=== PATIENT | female | born 1995 | race African-American/Black ===

== ENCOUNTER 2021-12-03 19:20 | Emergency (ER) | payer OTHER ==
--- OUTSIDE RECORDS SUMMARY | 2021-12-03 19:23 | XMS REPORT | Continuity of Care Document ---
:1995 Author Organization [facility] t Address [address] [place] [address] [address] [place] [address] Care Team Providers Name Role Phone PCP, DOES NOT HAVE A Primary Care Physician Unavailable Romel JONES Attending Clinician Unavailable Lab Attending Clinician Unavailable Romel Winn Attending Clinician Payers Payer Name Policy Type Policy Number Effective Date Expiration Date S ourkelsey MEDICAID PENDING PENDING 2021 2021 00:00:00 00:00:00 MEDICAID OF [place] [id number] 2021 2021 00:00:00 00:00:00 Problems Condition Condition Condition Status Onset Resolution Last Treating Co mments Source Name Details Category Date Date Treatment Clinician Date Maternal Maternal Disease Active Overview: Un rebecca varicella, varicella, 11-23 Formattin ity of non-immune non-immune 00:00: g of this 00 note Medical might be Branch different from the original. Address in PP Supervisio Supervisio Disease Active U nivers n of high n of high 11-22 ity of risk risk 00:00: [place] , , 00 Me dical antepartum antepartum Br anch Primigravi Primigravi Disease Active U nivers da in da in 11-22 ity of first first 00:00: [place] trimester trimester 00 Medi fidencio Branch History of History of Disease Active U nivers stomach stomach 11-22 ity of ulcers ulcers 00:00: [place] 00 Medical Branch Marijuana Marijuana Disease Active Uni vers smoker smoker 11-22 ity of 00:00: Medical Branch BMI BMI Disease Active Univers 27.0-27.9, 27.0-27.9, 3-29 it y of adult adult 00:00: [place] 00 Medical Branch Anemia Anemia Disease Active Overview: Compa s 01-31 Formattin ity of 00:00: g of this [place] 00 note Medical might be Branch different from the original. 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 Allergies, Adverse Reactions, Alerts Allergy Allergy Status Severity Reaction(s) Onset Inactive Treating Comm ents Source Name Type Date Date Clinician NO KNOWN Drug Active Univers ALLERGIE Class ity of S [facility] Social History Social Habit Start Date Stop Date Quantity Comments Source ASSERTION 2021-11-01 University of 00:00:00 [place] [facility] [place] History SDOH University o f Alcohol Frequency [place] M edical Branch History SDOH University o f Alcohol Std [place] Medical Drinks Branch History [facility] o f Alcohol Binge [place] Medic al Branch Exposure to Not sure University of SARS-CoV-2 [facility] (event) Branch Tobacco use and 2021-11-22 2021-11-22 Never used Universit y of exposure 00:00:00 00:00:00 [facility] Alcohol intake 2021-11-22 2021-11-22 Ex-drinker University of 00:00:00 00:00:00 (finding) [facility] Alcohol Comment 2021-11-22 2021-11-22 stopped for Universi ty of 00:00:00 00:00:00 [facility] Sex Ass[birth year] Universit y of 00:00:00 00:00:00 [facility] Smoking Status Start Date Stop Date Source Current every day smoker 2021-11-22 00:00:00 Uni versity of [facility] Medications Ordered Filled Start Stop Current Ordering Indication Dosage Frequency Signature Comments Components Source Medication Medication Date Date Medication? Clinician (SIG) Name Name Yes [id number] 1{packe Take 1 Univers vit 3-30 t} Packet by ity of 33-iron-fol 00:00: mouth [place] ic-dha 00 daily. Medical (SELECT-OB Branch + DHA) 29 mg iron-1 mg -250 mg combo pack Immunizations Ordered Filled Immunization Date Status Comments Sourc e Immunization Name Name TDAP 2009-08-27 Completed University of 00:00:00 [facility] Procedures This patient has no known procedures. Encounters Start End Encounter Admission Attending Care Care Encounter Source Date/Time Date/Time Type Type Clinicians Facility Department ID 2021-12-20 2021-12-20 Outpatient Romel JONES [facility] [id number] Univers 13:45:00 13:45:00 EMMA rand [facility] 2021-11-24 2021-11-24 [facility], Ang-Rmchp [facility] 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
[2021-12-03 19:58] LABS: Urine Blood Negative (Negative); Urine Glucose Negative (Negative); Urine Protein Negative (Negative); Urine Specific Gravity >=1.030 (1.005-1.030)
[2021-12-03] MEDS ORDERED: NA CHLORIDE 0.9% 1,000 ML ONE (20:08)
[2021-12-03] MEDS ORDERED: PROMETHAZINE INJ 25 MG/ML AMP ONE (20:08)
[2021-12-03 20:10] LABS: Absolute Lymphocytes (CBC) 1.6 K/uL (0.7-4.9); Hematocrit 37.3 % (36.0-45.0); Lymphocytes % 10.5 % (15.3-44.8); MPV 9.4 fL (7.6-11.3); RBC Red Blood Cell Count 4.21 M/uL (3.86-4.86)
[2021-12-03 20:17] LABS: Urine Amorphous Sediment 1+ /HPF (NONE SEEN); Urine Bacteria 20-50 /HPF (<20); Urine Mucus 1+ /HPF (NONE SEEN); Urine RBC <5 /HPF (NONE SEEN)
[2021-12-03 20:27] LABS: BUN Blood Urea Nitrogen 7 mg/dL (7-18); Bicarbonate 22 mmol/L (21-32); Glucose Level 105 mg/dL (74-106); Sodium Level 134 mmol/L (136-145)
[2021-12-03 20:28] LABS: Potassium 4.1 mmol/L (3.5-5.1)
[2021-12-03] MEDS ORDERED: NA CHLORIDE 0.9% 50 ML ONE (21:29)
[2021-12-03] MEDS ORDERED: CEFTRIAXONE 1000 MG/VIAL ONE (21:29)
[2021-12-03] MEDS ORDERED: ONDANSETRON 4 MG/2 ML VIAL ONE (22:22)
[2021-12-03] MEDS ORDERED: FAMOTIDINE 20 MG/2 ML VIAL IV ONE (22:23)
--- NOTE | 2021-12-03 23:30 | EDPHYS ---
Physician Documentation [facility] Name: Monserrat Tellez Age: 26 yrs Sex: Female : 1995 Arrival Date: 12/03/2021 Time: 19:23 Bed 13 Private MD: ED Physician René Soler HPI: 12/03 19:33 This 26 yrs old Black Female presents to ER via EMS with complaints of Vomiting. pm1 19:33 The patient presents to the emergency department with vomiting, 3 times since the onset pm1 of symptoms, 3 times today. Onset: The symptoms/episode began/occurred this morning. Possible causes: . The symptoms are aggravated by nothing. The symptoms are alleviated by nothing. Associated signs and symptoms: Pertinent negatives: abdominal pain, diarrhea, dysuria, fever. Severity of symptoms: in the emergency department the symptoms have improved Pain is currently a 0 / 10. The patient has not experienced similar symptoms in the past. Patient has been seen by her OB at the [facility] clinic for this . 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 - Social history:: Smoking status: Patient/guardian denies using tobacco, Stopped _ months ago 2. ROS: 19:33 Constitutional: Negative for fever, chills, and weight loss, Cardiovascular: Negative pm1 for chest pain, palpitations, and edema, Respiratory: Negative for shortness of breath, cough, wheezing, and pleuritic chest pain. 19:33 Back: Negative for injury and pain, MS/Extremity: Negative for injury and deformity, Skin: Negative for injury, rash, and discoloration, Neuro: Negative for headache, weakness, numbness, tingling, and seizure. 19:33 Abdomen/GI: Positive for vomiting, constipation, Negative for abdominal pain, diarrhea. 19:33 All other systems are negative. Exam: 19:33 Constitutional: This is a well developed, well nourished patient who is awake, alert, pm1 and in no acute distress. Head/Face: Normocephalic, atraumatic. 19:33 Skin: Warm, dry with normal turgor. Normal color with no rashes, no lesions, and no evidence of cellulitis. MS/ Extremity: Pulses equal, no cyanosis. Neurovascular intact. Full, normal range of motion. 19:33 Cardiovascular: Exam negative for acute changes, Rate: normal, Rhythm: regular, Pulses: no pulse deficits are appreciated, Heart sounds: normal, normal S1and S2. 19:33 Respiratory: Exam negative for acute changes, respiratory distress, shortness of breath, Breath sounds: are clear throughout. 19:33 Abdomen/GI: Exam negative for acute changes, Inspection: abdomen appears normal, Palpation: abdomen is soft and non-tender, in all quadrants. 19:33 Back: Exam negative for acute changes, pain, is absent. 19:33 Neuro: Exam negative for acute changes, Orientation: is normal, Mentation: is normal, Motor: is normal, moves all fours. Vital Signs: 19:24 BP 101 / 74; Pulse 82; Resp 16 S; Temp 98.6(O); Pulse Ox 96% on R/A; Weight 61.23 kg bb (R); Height 5 ft. 0 in. (152.40 cm) (R); Pain 0/10; 20:15 BP 149 / 97 LA (auto/reg); Pulse 94 MON; Resp 20 S; Pulse Ox 100% on R/A; Pain 0/10; ag7 22:35 BP 118 / 75; Pulse 64; Resp 16 S; Pulse Ox 99% on R/A; bb 19:24 Body Mass Index 26.37 (61.23 kg, 152.40 cm) bb MDM: 19:25 Patient medically screened. pm1 21:19 Data reviewed: vital signs. Data interpreted: Pulse oximetry: on room air is 100 %. pm1 Interpretation: normal. 21:37 Counseling: I had a detailed discussion with the patient and/or guardian regarding: the pm1 historical points, exam findings, and any diagnostic results supporting the discharge/admit diagnosis, lab results, the need for outpatient follow up, an OB/Gyne specialist, to return to the emergency department if symptoms worsen or persist or if there are any questions or concerns that arise at home. 22:07 ED course: Patient reports no improvement with Phenergan. Will try zofran. pm1 12/03 19:33 Order name: CBC with Diff; Complete Time: 21:18 pm1 12/03 19:33 Order name: BMP; Complete Time: 21:18 pm1 12/03 19:34 Order name: Urine Microscopic Only; Complete Time: 21:18 pm1 12/03 19:58 Order name: Urine Dipstick-Ancillary; Complete Time: 20:09 EDMS 12/03 19:58 Order name: Urine --Ancillary (enter results); Complete Time: 20:09 cs9 12/03 20:20 Order name: Urine Culture EDMS 12/03 19:33 Order name: Urine Dipstick-Ancillary (obtain specimen); Complete Time: 20:16 pm1 12/03 19:33 Order name: Urine Test (obtain specimen); Complete Time: 20:16 pm1 12/03 19:33 Order name: IV Saline Lock; Complete Time: 20:16 pm1 12/03 21:20 Order name: PO challenge; Complete Time: 23:25 pm1 Administered Medications: 20:16 Drug: Phenergan (promethazine) 12.5 mg Route: IVP; Site: right hand; ag7 20:33 Follow up: Response: No adverse reaction ag7 20:33 Follow up: Response: No adverse reaction; Marked relief of symptoms ag7 20:16 Drug: NS 0.9% 1000 ml Route: IV; Rate: 1000 ml; Site: right hand; ag7 21:18 Follow up: Response: No adverse reaction; IV Status: Completed infusion; IV Intake: ag7 1000ml 21:29 Drug: Rocephin (cefTRIAXone) 1 grams Route: IV; Rate: calculated rate; Site: right hand;ag7 22:22 Follow up: Response: No adverse reaction; IV Status: Completed infusion; IV Intake: [id number] 22:25 Drug: Pepcid (famotidine) 20 mg Route: IVP; Site: right hand; bb 23:25 Follow up: Response: No adverse reaction bb 22:27 Drug: Zofran (Ondansetron) 4 mg Route: IVP; Site: right hand; bb 23:25 Follow up: Response: No adverse reaction bb Disposition: 12/04 06:11 Co-signature as Attending Physician, Reén Soler DO I was immediately available on-site ms3 in the Emergency Department for consultation in the care of the patient.. Disposition Summary: 12/03/21 23:29 Discharge Ordered Location: Home pm1 Problem: new pm1 Symptoms: have improved pm1 Condition: Stable pm1 Diagnosis - Vomiting pm1 - UTI/ Urinary tract infection, site not specified pm1 Followup: pm1 - With: Emergency Department - When: As needed - Reason: Worsening of condition Followup: pm1 - With: Private Physician - When: 2 - 3 days - Reason: Recheck today's complaints, Continuance of care, Re-evaluation by your physician Discharge Instructions: - Discharge Summary Sheet pm1 - Nausea and Vomiting, Adult pm1 - and Urinary Tract Infection pm1 Forms: - Medication Reconciliation Form pm1 - Thank You Letter pm1 - Antibiotic Education pm1 - Prescription Opioid Use pm1 Prescriptions: - ondansetron 4 mg Oral tablet,disintegrating - take 1 tablet by ORAL route every 8 hours As needed; 10 tablet; Refills: 0, pm1 Product Selection Permitted - Macrobid 100 mg Oral Capsule - take 1 capsule by ORAL route every 12 hours for 10 days; 20 capsule; Refills: pm1 0, Product Selection Permitted Signatures: Dispatcher [employer] EDRenay Woodruff RN RN Deondre Jean, TESS VP ANCILLARY pm1 René Soler DO DO ms3 Yohana Hollis RN RN ag7 Ivania Bird RN lp1
--- NOTE | 2021-12-03 23:30 | ER ---
Nurse's Notes [facility] Name: Monserrat Tellez Age: 26 yrs Sex: Female : 1995 Arrival Date: 12/03/2021 Time: 19:23 Bed 13 Private MD: Diagnosis: Vomiting;UTI/ Urinary tract infection, site not specified Presentation: 12/03 19:24 Chief complaint: EMS states: they were toned out for report of pt vomiting who is 6 bb weeks , pt denies pain or vaginal bleeding. Coronavirus screen: At this time, the client does not indicate any symptoms associated with coronavirus-19. Ebola Screen: No symptoms or risks identified at this time. Initial Sepsis Screen: Does the patient meet any 2 criteria? No. Patient's initial sepsis screen is negative. Does the patient have a suspected source of infection? No. Patient's initial sepsis screen is negative. Risk Assessment: Do you want to hurt yourself or someone else? Patient reports no desire to harm self or others. Onset of symptoms was December 03, 2021. 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 - Social history:: Smoking status: Patient/guardian denies using tobacco, Stopped _ months ago 2. Screenin:27 Abuse screen: Denies threats or abuse. Nutritional screening: No deficits noted. bb Tuberculosis screening: No symptoms or risk factors identified. Fall Risk None identified. Assessment: 19:27 General: Appears in no apparent distress. Behavior is calm, cooperative. Pain: Denies bb pain. Neuro: Level of Consciousness is awake, alert, obeys commands, Oriented to person, place, time, situation. Cardiovascular: Capillary refill < 3 seconds Patient's skin is warm and dry. Respiratory: Respiratory effort is even, unlabored, Respiratory pattern is regular. GI: Abdomen is round Bowel sounds present X 4 quads. Abd is soft and non tender X 4 quads. Reports vomiting. Derm: Skin is pink, warm \T\ dry. Musculoskeletal: Circulation, motion, and sensation intact. 20:37 Reassessment: Patient and/or family updated on plan of care and expected duration. Pain ag7 level reassessed. Patient is alert, oriented x 3, equal unlabored respirations, skin warm/dry/pink. Patient denies pain at this time. Patient states feeling better. Patient states symptoms have improved. 22:34 Reassessment: Patient is alert, oriented x 3, equal unlabored respirations, skin bb warm/dry/pink. will wait for PO challenge for zofran to take effect. Pt resting quietly, IV site intact, patent with no erythema or edema noted. Vital Signs: 19:24 BP 101 / 74; Pulse 82; Resp 16 S; Temp 98.6(O); Pulse Ox 96% on R/A; Weight 61.23 kg bb (R); Height 5 ft. 0 in. (152.40 cm) (R); Pain 0/10; 20:15 BP 149 / 97 LA (auto/reg); Pulse 94 MON; Resp 20 S; Pulse Ox 100% on R/A; Pain 0/10; ag7 22:35 BP 118 / 75; Pulse 64; Resp 16 S; Pulse Ox 99% on R/A; bb 19:24 Body Mass Index 26.37 (61.23 kg, 152.40 cm) bb ED Course: 19:23 Patient arrived in ED. bb 19:24 Deondre Hartley NP is PHCP. pm1 19:25 Triage completed. bb 19:25 Arm band placed on Patient placed in an exam room, on a stretcher, on pulse oximetry. bb 19:27 Patient has correct armband on for positive identification. Placed in gown. Call light bb in reach. Side rails up X 1. Pulse ox on. NIBP on. Warm blanket given. 20:06 Urine collected: clean catch specimen, cloudy. bb 20:17 Inserted saline lock: 20 gauge in right hand, using aseptic technique. Missed ag7 attempt(s): 20 gauge in left antecubital area. Bleeding controlled, band aid applied, catheter tip intact. IV is patent, is intact, right hand. 21:19 René Soler DO is Attending Physician. pm1 Administered Medications: 20:16 Drug: Phenergan (promethazine) 12.5 mg Route: IVP; Site: right hand; ag7 20:33 Follow up: Response: No adverse reaction ag7 20:33 Follow up: Response: No adverse reaction; Marked relief of symptoms ag7 20:16 Drug: NS 0.9% 1000 ml Route: IV; Rate: 1000 ml; Site: right hand; ag7 21:18 Follow up: Response: No adverse reaction; IV Status: Completed infusion; IV Intake: ag7 1000ml 21:29 Drug: Rocephin (cefTRIAXone) 1 grams Route: IV; Rate: calculated rate; Site: right hand;ag7 22:22 Follow up: Response: No adverse reaction; IV Status: Completed infusion; IV Intake: [id number] 22:25 Drug: Pepcid (famotidine) 20 mg Route: IVP; Site: right hand; bb 23:25 Follow up: Response: No adverse reaction bb 22:27 Drug: Zofran (Ondansetron) 4 mg Route: IVP; Site: right hand; bb 23:25 Follow up: Response: No adverse reaction bb Intake: 21:18 IV: 1000ml; Total: 1000ml. ag7 22:22 IV: 50ml; Total: 1050ml. lp1 Outcome: 23:29 Discharge ordered by . pm1 12/04 00:00 Patient left the ED. lp1 Signatures: Renay Appiah RN RN bb Ivania Bird RN RN 1 Deondre Hartley, TESS REFUELER pm1 Yohana Hollis RN RN 7
[2021-12-04 01:38] VITALS: TEMP 98.6
[2021-12-04 01:41] VITALS: BP 118/75; O2SAT 99
== END 2021-12-04 | disposition home or self-care (01) ==
LOC: ER 19:20
DX: O23.41 Unspecified infection of urinary tract in pregnancy, first trimester (principal); N39.0 Urinary tract infection, site not specified; Z3A.09 9 weeks gestation of pregnancy
CPT/HCPCS: 96365; 96361; 87088; 85025; 87086; 80048; 36415; 81025; 96375; 99284; J2550; J7030; J2405; 81003; 81015

== ENCOUNTER 2023-02-15 12:11 | Emergency (ER) | payer OTHER ==
--- OUTSIDE RECORDS SUMMARY | 2023-02-15 12:16 | XMS REPORT | Continuity of Care Document ---
:1995 Author Organization [facility] t Address [address] [place] [address] [place] [id number] Care Team Providers Name Role Phone Maria Fernanda Penny Primary Care Physician [phone] Visit, Carmelina Nurse Attending Clinician Unavailable Maria Fernanda Penny Attending Clinician [phone] MARIA FERNANDA BENNETT Attending Clinician Unavailable Doctor Unassigned, [place] Attending Clinician Unavailable Lab, Carmelina Attending Clinician Unavailable RENAY PEPPER Attending Clinician Unavailable Provider, Carmelina Temp Attending Clinician Unavailable Renay Pepper CNM Attending Clinician ARIAS YIN Attending Clinician Unavailable Arias Yin MD Attending Clinician Colin Dodge MD Attending Clinician Benoit Murrieta MD Attending Clinician KARUNA TARANGO Attending Clinician Unavailable EMMA NGUYEN Attending Clinician Unavailable JERICA GLOVER Attending Clinician Unavailable Emma Winn Attending Clinician Tierney Evangelista Attending Clinician Jerica Overton Attending Clinician DILLAN SORIANO Attending Clinician Unavailable DILLAN SORIANO Attending Clinician Unavailable Ultrasound, Ang-Mfm Attending Clinician Unavailable Christina Schwab MD Attending Clinician [phone] CHRISTINA SCHWAB Attending Clinician Unavailable JANICE GUO Attending Clinician Unavailable JANICE GUO Attending Clinician Unavailable Julia Leos MD Attending Clinician JULIA LEOS Attending Clinician Unavailable RAIAS YIN Admitting Clinician Unavailable Arias Yin MD Admitting Clinician Payers Payer Name Policy Type Policy Number Effective Date Expiration Date S ource MEDICAID PENDING PENDING 2021 00:00:00 Problems Condition Condition Condition Status Onset Resolution Last Treating Co mments Source Name Details Category Date Date Treatment Clinician Date 39 weeks 39 weeks Disease Active 2021-08 Unive rs gestation gestation 1-22 ity of of of 00:00: [place] 00 [facility] Obesity Obesity Disease Active 2021-08 Univers (BMI (BMI 1-22 ity of 30-39.9) 30-39.9) 00:00: [place] 00 Medical Branch Anemia of Anemia of Disease Active Uni vers mother in mother in 9-30 ity of , , 00:00[place] antepartum antepartum 00 Me dical Branch Non-recurr Non-recurr Disease Active U nivporfirio ent acute ent acute 9-30 ity of serous serous 00:00: [place] otitis otitis 00 Medical media of media of Branch left ear left ear Nausea and Nausea and Disease Active U nivers vomiting vomiting 6-13 ity of during during 00:00: [place] 00 [facility] UTI in UTI in Disease Active Overview: Univer s 4-13 Formattin i ty of 00:00: g of this note Medical might be Branch different from the original. [place] at next, dx with uti at [facility] Maternal Maternal Disease Active Overview: Un rebecca varicella, varicella, 3-30 Formattin ity of non-immune non-immune 00:00: g of this note Medical might be Branch different from the original. Address in PP Supervisio Supervisio Disease Active U nivers n of high n of high 11-22 ity of risk risk 00:00: [place] , , 00 Me dical antepartum antepartum Br anch Primigravi Primigravi Disease Active U nivers da in da in 11-22 ity of second second 00:00: [place] trimester trimester 00 Medi fidencio Branch History of History of Disease Active U nivers stomach stomach 11-22 ity of ulcers ulcers 00:00: Medical Branch Marijuana Marijuana Disease Active Uni vers smoker smoker 11-22 ity of 00:: Medical Branch BMI BMI Disease Active Univers 29.0-29.9, 29.0-29.9, 11-22 it y of adult adult 00:00: Medical Branch BMI BMI Disease Active Univers 29.0-29.9, 29.0-29.9, 11-22 it y of adult adult 00:00: Medical Branch Anemia Anemia Disease Active Overview: Univer s 01-31 Formattin ity of 00:00: g of this note Medical might be Branch different from the original. ICD10 Diagnosis Term [employer] Allergies, Adverse Reactions, Alerts Allergy Allergy Status Severity Reaction(s) Onset Inactive Treating Comm ents Source Name Type Date Date Clinician NO KNOWN Drug Active Univers ALLERGIE Class ity of S [facility] Social History Social Habit Start Date Stop Date Quantity Comments Source ASSERTION 2021-11-01 University of 00:00:00 [facility] History SDOH University o f Alcohol Frequency [place] M edical Branch History SDMD University o f Alcohol Std [place] Medical Drinks Branch History SDOH University o f Alcohol Binge [place] Medic al Branch History of Smokes tobacco University of tobacco use daily [facility] Exposure to 2022-08-29 2022-09-08 Not sure University of SARS-CoV-2 00:00:00 09:41:00 [facility] (event) Branch Alcohol intake 2022-09-08 2022-09-08 Current drinker Unive rsity of 00:00:00 00:00:00 of alcohol [facility] (finding) Branch Alcohol Comment 2022-09-08 2022-09-08 on occassion Univers ity of 00:00:00 00:00:00 [facility] Tobacco use and 2022-04-03 2022-04-03 Smokeless tobacco Un iversity of exposure 00:00:00 00:00:00 non-user [facility] Sex Ass[birth year] At [birth year] Universit y of 00:00:00 00:00:00 [facility] Smoking Status Start Date Stop Date Source Smokes tobacco daily 2022-04-03 00:00:00 [facility] ity [facility] Medications Ordered Filled Start Stop Current Ordering Indication Dosage Frequency Signature Comments Components Source Medication Medication Date Date Medication? Clinician (SIG) Name Name benzocaine- 2021-08 [id number] Apply to [facility] menthol, 1-28 area(s) as ity o f DERMOPLAST, 00:00: [place] 20-0.5 % 00 (Perineum Medica l topical discomfort Branch spray ). docusate 2021-08 Yes [id number] 200mg Take 2 U nivers 100 mg 1-28 capsules ity of capsule 00:00: by mouth [place] 00 in the Medical morning. Branch ferrous 2021-08 Yes [id number] 325mg Take 1 Un rebecca sulfate 325 1-28 tablet by ity of mg (65 mg 00:00: mouth [place] iron) 00 every Medical tablet other day. Branch foLIC acid 2021-08 Yes [id number] 1mg Take 1 Univers 1 mg tablet 1-28 tablet by ity of 00:00: mouth in [place] 00 the Medical morning. Branch ibuprofen 2021-08 Yes [id number] 600mg Take 1 Univers 600 mg 1-28 tablet by ity of tablet 00:00: mouth [place] 00 every 6 Medical (six) Branch hours as needed (Pain). Take with food or milk. benzocaine- 2021-08 [id number] Apply to [facility] menthol, 1-28 area(s) as ity o f DERMOPLAST, 00:00: [place] 20-0.5 % 00 (Perineum Medica l topical discomfort Branch spray ). docusate 2021-08 Yes [id number] 200mg Take 2 U nivers 100 mg 1-28 capsules ity of capsule 00:00: by mouth [place] 00 in the Medical morning. Branch ferrous 2021-08 Yes [id number] 325mg Take 1 Un rebecca sulfate 325 1-28 tablet by ity of mg (65 mg 00:00: mouth [place] iron) 00 every Medical tablet other day. Branch foLIC acid 2021-08 Yes [id number] 1mg Take 1 Univers 1 mg tablet 1-28 tablet by ity of 00:00: mouth in [place] 00 the Medical morning. Branch ibuprofen 2021-08 Yes [id number] 600mg Take 1 Univers 600 mg 1-28 tablet by ity of tablet 00:00: mouth [place] 00 every 6 Medical (six) Branch hours as needed (Pain). Take with food or milk. benzocaine- 2021-08 Yes [id number] Apply to Univers menthol, 1-28 area(s) as ity o f DERMOPLAST, 00:00: [place] 20-0.5 % 00 (Perineum Medica l topical discomfort Branch spray ). docusate 2021-08 Yes [id number] 200mg Take 2 U nivers 100 mg 1-28 capsules ity of capsule 00:00: by mouth [place] 00 in the Medical morning. Branch ferrous 2021-08 Yes [id number] 325mg Take 1 Un rebecca sulfate 325 1-28 tablet by ity of mg (65 mg 00:00: mouth [place] iron) 00 every Medical tablet other day. Branch foLIC acid 2021-08 Yes [id number] 1mg Take 1 Univers 1 mg tablet 1-28 tablet by ity of 00:00: mouth in [place] 00 the Medical morning. Branch ibuprofen 2021-08 Yes [id number] 600mg Take 1 Univers 600 mg 1-28 tablet by ity of tablet 00:00: mouth [place] 00 every 6 Medical (six) Branch hours as needed (Pain). Take with food or milk. ferrous 2021-08 Yes [id number] 325mg Take 1 Un rebecca sulfate 325 1-28 tablet by ity of mg (65 mg 00:00: mouth [place] iron) 00 every Medical tablet other day. Branch ibuprofen 2021-08 Yes [id number] 600mg Take 1 Univers 600 mg 1-28 tablet by ity of tablet 00:00: mouth [place] 00 every 6 Medical (six) Branch hours as needed (Pain). Take with food or milk. ferrous 2021-08 Yes [id number] 325mg Take 1 Un rebecca sulfate 325 1-28 tablet by ity of mg (65 mg 00:00: mouth [place] iron) 00 every Medical tablet other day. Branch ibuprofen 2021-08 Yes [id number] 600mg Take 1 Univers 600 mg 1-28 tablet by ity of tablet 00:00: mouth [place] 00 every 6 Medical (six) Branch hours as needed (Pain). Take with food or milk. ferrous 2021-08 Yes [id number] 325mg Take 1 Un rebecca sulfate 325 1-28 tablet by ity of mg (65 mg 00:00: mouth [place] iron) 00 every Medical tablet other day. Branch ibuprofen 2021-08 Yes [id number] 600mg Take 1 Univers 600 mg 1-28 tablet by ity of tablet 00:00: mouth [place] 00 every 6 Medical (six) Branch hours as needed (Pain). Take with food or milk. ferrous 2021-08 Yes [id number] 325mg Take 1 Un rebecca sulfate 325 1-28 tablet by ity of mg (65 mg 00:00: mouth [place] iron) 00 every Medical tablet other day. Branch ibuprofen 2021-08 Yes [id number] 600mg Take 1 Univers 600 mg 1-28 tablet by ity of tablet 00:00: mouth [place] 00 every 6 Medical (six) Branch hours as needed (Pain). Take with food or milk. ferrous 2021-08 Yes [id number] 325mg Take 1 Un rebecca sulfate 325 1-28 tablet by ity of mg (65 mg 00:00: mouth [place] iron) 00 every Medical tablet other day. Branch ibuprofen 2021-08 Yes [id number] 600mg Take 1 Univers 600 mg 1-28 tablet by ity of tablet 00:00: mouth [place] 00 every 6 Medical (six) Branch hours as needed (Pain). Take with food or milk. ferrous 2021-08 Yes [id number] 325mg Take 1 Un rebecca sulfate 325 1-28 tablet by ity of mg (65 mg 00:00: mouth [place] iron) 00 every Medical tablet other day. Branch ibuprofen 2021-08 Yes [id number] 600mg Take 1 Univers 600 mg 1-28 tablet by ity of tablet 00:00: mouth [place] 00 every 6 Medical (six) Branch hours as needed (Pain). Take with food or milk. ferrous 2021- Yes [id number] 325mg Take 1 Un rebecca sulfate 325 1-28 tablet by ity of mg (65 mg 00:00: mouth [place] iron) 00 every Medical tablet other day. Branch ibuprofen 2021-08 Yes [id number] 600mg Take 1 Univers 600 mg 1-28 tablet by ity of tablet 00:00: mouth [place] 00 every 6 Medical (six) Branch hours as needed (Pain). Take with food or milk. benzocaine- 2021-08- No [id number] Apply to Univers menthol, 09-23 area(s) as ity of DERMOPLAST, 00:00: 00:00 needed [place] 20-0.5 % 00 :00 (Perineum Medica l topical discomfort Branch spray ). docusate 2021-08- No [id number] 200mg Take 2 Univers 100 mg 09-23 capsules ity of capsule 00:00: 00:00 by mouth [place] 00 :00 in the Medical morning. [place] foLIC acid 2021-08- No [id number] 1mg Take 1 Univers 1 mg tablet 09-23 tablet by it y of 00:00: 00:00 mouth in [place] 00 :00 the Medical morning. [place] benzocaine- 2021-08- No [id number] Apply to Univers menthol, 09-23 area(s) as ity of DERMOPLAST, 00:00: 00:00 needed [place] 20-0.5 % 00 :00 (Perineum Medica l topical discomfort Branch spray ). docusate 2021-08- No [id number] 200mg Take 2 Univers 100 mg 09-23 capsules ity of capsule 00:00: 00:00 by mouth [place] 00 :00 in the Medical morning. [place] foLIC acid 2021-08- No [id number] 1mg Take 1 Univers 1 mg tablet 09-23 tablet by it y of 00:00: 00:00 mouth in [place] 00 :00 the Medical morning. [place] benzocaine- 2021-08- No [id number] Apply to Univers menthol, 09-23 area(s) as ity of DERMOPLAST, 00:00: 00:00 needed [place] 20-0.5 % 00 :00 (Perineum Medica l topical discomfort Branch spray ). docusate 2021-08- No [id number] 200mg Take 2 Univers 100 mg 09-23 capsules ity of capsule 00:00: 00:00 by mouth [place] 00 :00 in the Medical morning. [place] foLIC acid 2021-08- No [id number] 1mg Take 1 Univers 1 mg tablet 09-23 tablet by it y of 00:00: 00:00 mouth in [place] 00 :00 the Medical morning. Branch foLIC acid 2021-08 Yes 1mg 1 mg, Univer s (FOLATE) -24 Oral, ity of tablet 1 mg 15:00: DAILY, [place] 00 First dose Medical on [facility] 07/20/22 at 0900, Until Discontinu ed, Routine ferrous 2021-08 Yes 325mg 325 mg, Univer s sulfate 24 Oral, Q ity of tablet 325 15:00: OTHERDAY, [place] mg 00 First dose Medical on [facility] Branch 07/20/22 at 0900, Until Discontinu ed, Routine varicella 2021-08 Yes 1{each} 0.5 mL (1 Univers virus 09-19 Each), ity of vaccine 12:09: Subcutaneo [place] live 24 , Medical (VARIVAX) ONCE-PRIOR Bran ch injection TO and diluent DISCHARGE, vial 1 dose, Starting on [facility] 07/20/22 at 0609, Until Discontinu ed, Routine, Give vaccine prior to discharge benzocaine- 2021-08 Yes [id number] Apply to Univers menthol, 09-19 area(s) as ity o f DERMOPLAST, 00:00: needed [place] 20-0.5 % 00 (Perineum Medica l topical discomfort Branch spray ). ibuprofen 2021-08 Yes [id number] 600mg Take 1 Univers 600 mg 24 tablet by ity of tablet 00:00: mouth [place] 00 every 6 Medical (six) Branch hours as needed (Pain). Take with food or milk. ferrous 2021-08- No [id number] 325mg Take 1 U nivers sulfate 325 09-19 tablet by it y of mg (65 mg 00:00: 05:59 mouth [place] iron) 00 :00 every Medical tablet other day Branch for 90 days. foLIC acid 2021-08- No [id number] 1mg Take 1 Univers 1 mg tablet 09-19 tablet by it y of 00:00: 05:59 mouth in [place] 00 :00 the Medical morning Branch for 90 days. docusate 2021-08- No [id number] 200mg Take 2 Univers 100 mg 09-19 capsules ity of capsule 00:00: 05:59 by mouth [place] 00 :00 in the Medical morning Branch for 90 days. ferrous 2021-08- No [id number] 325mg Take 1 U nivers sulfate 325 09-19 tablet by it y of mg (65 mg 00:00: 00:00 mouth [place] iron) 00 :00 every Medical tablet other day Branch for 90 days. foLIC acid 2021-08- No [id number] 1mg Take 1 Univers 1 mg tablet 09-19 tablet by it y of 00:00: 00:00 mouth in [place] 00 :00 the Medical morning Branch for 90 days. docusate 2021-08- No [id number] 200mg Take 2 Univers 100 mg 09-19 capsules ity of capsule 00:00: 00:00 by mouth [place] 00 :00 in the Medical morning Branch for 90 days. benzocaine- 2021-08- No [id number] Apply to Univers menthol, 09-19 area(s) as ity of DERMOPLAST, 00:00: 00:00 needed [place] 20-0.5 % 00 :00 (Perineum Medica l topical discomfort Branch spray ). ibuprofen 2021-08- No [id number] 600mg Take 1 Univers 600 mg 09-19 tablet by ity of tablet 00:00: 00:00 mouth [place] 00 :00 every 6 Medical (six) Branch hours as needed (Pain). Take with food or milk. rho(D) 2021-08 Yes 300ug 300 mcg, Univer s immune 09-18 Intramuscu ity of globulin 20:20: lar, ONCE, [place] as (RHOGAM) 55 For 1 Medical syringe 300 dose, Branch mcg Conditiona l, Routine ibuprofen 2021-08 Yes 600mg 600 mg, Univ ers (IBU) 09-18 Oral, ity of tablet 600 20:20: Q6HPRN, [place] mg 52 Starting Medical on Sun Branch 07/19/22 at 1420, Until Discontinu ed, Routine, Pain (scale 4-6) acetaminoph 2021-08 Yes 650mg 650 mg, Un rebecca en 09-18 Oral, ity of (TYLENOL) 20:20: Q6HPRN, [place] tablet 650 52 Starting Medic al mg on Sun22 at 1420, Until Discontinu ed, Routine, Pain (scale 1-3) diphenhydrA 2021-08 Yes 25mg 25 mg, Univ ers MINE 09-18 Oral, ity of (BENADRYL) 20:20: Q6HPRN, [place] tablet 25 52 Starting Medica l mg on Sun Branch 07/19/22 at 1420, Until Discontinu ed, Routine, Sleep, Itching ondansetron 2021-08 Yes 4mg 4 mg, Slow Univers (ZOFRAN 09-18 IV Push, ity of (PF)) 20:20: Q8HPRN, [place] injection 4 52 Starting Medi fidencio mg on Sun Branch 07/19/22 at 1420, Until Discontinu ed, Routine, Nausea and Vomiting (N/V) simethicone 2021-08 Yes 160mg 160 mg, Un rebecca (GAS RELIEF 09-18 Oral, ity of (SIMETHICON 20:20: PC+HSPRN, [place] E)) 52 Starting Medical chewable on Sun Branch tablet 160 07/19/22 mg at 1420, Until Discontinu ed, Routine, Gas docusate 2021-08 Yes 200mg 200 mg, Unive rs (COLACE) 09-18 Oral, ity of capsule 200 20:20: QDAILYPRN, [place] mg 52 Starting Medical on Sun Branch 07/19/22 at 1420, Until Discontinu ed, Routine, Constipati on magnesium 2021-08 Yes 30mL 30 mL, Univer s hydroxide 09-18 Oral, ity of (MILK OF 20:20: QDAILYPRN, [place] MAGNESIA) 52 Starting Medica l 400 mg/5 mL on Sun Branch suspension 07/19/22 30 mL at 1420, Until Discontinu ed, Routine, Constipati on benzocaine- 2021-08 Yes Topical, Un rebecca menthol 09-18 PRN, ity of (DERMOPLAST 20:20: Starting [place] ) 20-0.5 % 52 on Sun Medical topical 07/19/22 Branch spray at 1420, Until Discontinu ed, Routine, Perineum discomfort methylergon 2021-08- No .2mg 0.2 mg, Un rebecca ovine 09-18 Intramuscu ity of (METHERGINE 19:30: 17:29 lar, ONCE, [place] ) injection 00 :00 1 dose, On Me dical 0.2 mg [facility] Branch 07/19/22 at 1330, Routine morpHINE (4 2021-08- No 4mg 4 mg, Slow Univers mg/mL) 09-18 IV Push, ity of injection 4 19:30: 17:27 ONCE, 1 [place] mg 00 :00 dose, On Medical [facility] 07/19/22 at 1330, Routine lactated 2021-08- No 1000mL at 125 [facility] ers ringers IV 09-18 mL/hr, ity of infusion 17:45: 20:27 1,000 mL, [place] as 1,000 mL 00 :00 IV Medical Infusion, Branch ONCE, 1 dose, On Sun07/19/22 at 1145, BERT ibuprofen 2021-08 Yes 600mg 600 mg, [facility] ers (IBU) 09-18 Oral, ity of tablet 600 17:23: Q6HPRN, [place] mg 48 Starting Medical on Sun Branch 07/19/22 at 1123, Until Discontinu ed, Routine, Pain (scale 1-3) tobramycin 2021-08- No 5mg/kg 280 mg Un rebecca (NEBCIN) 09-18 (rounded ity of 280 mg in 13:45: 12:07 from 289 [place] as NaCl 0.9% 00 :25 mg = 5 Medical (NS) mg/kg Branch piggyback ?57.8 kg Adjusted weight), IV Piggyback, Q24H ABX, 2 doses, First dose on Sun07/19/22 at 0745, Last dose on Ch[place] 07/20/22 at 0745, Administer over 30 Minutes, 50 mL
Reas on for Anti-Infec tive: Empiric Therapy for Suspected Infection< br>Empiric Therapy Site: Abdominal< br>Duratio n of therapy: 72 hours ampicillin 2021-08- No 2g 2,000 mg Un rebecca (POLYCILLIN 09-18 (2 g), IV it y of -N) 2,000 13:45: 12:07 Piggyback, [place] mg in NaCl 00 :25 Q6H ABX, 8 Med ical 0.9% (NS) doses, Branch 100 mL First dose MINI-BAG on Sun07/19/22 at 0745, Last dose on Sun07/21/22 at 0145, Administer over 30 Minutes, 100 mL
Reas on for Anti-Infec tive: Empiric Therapy for Suspected Infection< br>Empiric Therapy Site: Abdominal< br>Duratio n of therapy: 72 hours acetaminoph 2021-08- No 1000mg 1,000 mg, Univers en 09-18 Oral, ity of (TYLENOL) 13:30: 12:58 ONCE, 1 [place] tablet 00 :00 dose, On Medical 1,000 mg Wed Branch 07/19/22 at 0730, Routine ondansetron 2021-08- No 4mg 4 mg, Slow Univers (ZOFRAN 09-18 IV Push, ity of (PF)) 12:45: 12:06 ONCE, On [place] injection 4 00 :00 Sun Medical mg 07/19/22 Branch at 0645, For 1 dose
Do ses of ondansetro n 16 mg and above need to be administer ed via IV piggyback. For Dose >=24mg ECG monitoring is advisable.
oxytocin 2021-08 Yes 2mU/min at 2-40 Uni vers (PITOCIN) 1-23 mL/hr, IV ity o f 30 units in 06:27: Infusion, [place] NS 500 mL 52 TITRATE, Medica l IV infusion Starting Bran ch on Sun07/19/22 at 0027, Until Discontinu ed, BERT ropivacaine 2021-08- No Epidural, Univers 0.2 % 09-18 CONTINUOUS ity of (NAROPIN 05:07: 19:07 PRN, [place] (PF)) 00 :11 Starting Medical epidural on Tue Branch infusion 07/18/22 at 2307, Until Sun07/19/22 at 1307, Routine, Intra-op lidocaine-e 2021-08- No Intraderma Univers pinephrine 09-18 l, ONCE ity o f (XYLOCAINE 05:06: 19:07 INTRA [place] W/EPINEPHRI 00 :11 PROCEDURE, Or dicfeliciano NE) 1.5 Starting Branch %-1:200,000 on Tue injection 07/18/22 at 2306, Until Sun07/19/22 at 1307, Routine, Intra-op lidocaine 2021-08- No Intravenou U nivers 2% 09-18 s, ONCE ity of (XYLOCAINE) 04:44: 19:07 INTRA [place] 20 mg/mL (2 00 :11 PROCEDURE, Me dical %) Starting Branch injection on Sun07/18/22 at 2244, Until Sun07/19/22 at 1307, Routine, Intra-op sodium 2021-08 Yes 30mL 30 mL, Univers citrate-cit 09-18 Oral, ity of kennedy acid 04:36: PRE-PROCED [place] as (BICITRA) 25 URE ONCE, Medic al 500-334 1 dose, Branch mg/5 mL Starting solution 30 on mL 07/18/22 at 2236, Until Discontinu ed, Routine, Surgery/Pr ocedure lactated 2021-08- No 500mL at 999 Unive rs ringers IV 09-18 mL/hr, 500 it y of infusion 04:36: 07:37 mL, IV [place] 500 mL 25 :56 Infusion, Medical PRN - SEE Branch INSTRUCTIO NS, 1 dose, Starting on Sun07/18/22 at 2236, Until Sun07/19/22 at 0137, Routine nalbuphine 2021-08- No 10mg 10 mg, Univ ers (NUBAIN) 09-17 Intravenou ity of injection 16:00: 15:24 s, ONCE, 1 [place] 10 mg 00 :00 dose, On Medical [facility] Branch 07/18/22 at 1000, Routine sodium 2021-08 Yes 30mL 30 mL, Univers citrate-cit 09-17 Oral, ity of kennedy acid 13:38: PRE-PROCED [place] (BICITRA) 22 URE ONCE, Medic al 500-334 1 dose, Branch mg/5 mL Starting solution 30 on Sun mL 07/18/22 at 0738, Until Discontinu ed, Routine, Surgery/Pr ocedure lidocaine 2021-08 Yes 50mL 50 mL, Univer s 1% 09-17 Infiltrati ity of (XYLOCAINE) 13:38: on, PRN - [place] 10 mg/mL (1 22 SEE Medical %) INSTRUCTIO Branch injection NS, 50 mL Starting on Sun07/18/22 at 0738, Until Discontinu ed, Routine, Local anesthesia , For laceration repair only as a local anesthetic as indicated. lidocaine 2021-08 Yes .3mL 0.3 mL, Unive rs 1% (PF) - Infiltrati ity of (XYLOCAINE) 13:38: on, PRN - [place] injection 22 SEE Medical 0.3 mL INSTRUCTIO Branch NS, Starting on Sun07/18/22 at 0738, Until Discontinu ed, Routine, Local anesthesia , For IV line placement only as a local anesthetic . lactated 2021-08 Yes 500mL at 999 Univer s ringers IV 1-22 mL/hr, 500 ity of infusion 13:38: mL, IV [place] 500 mL 22 Infusion, Medical PRN - SEE Branch INSTRUCTIO NS, Starting on Sun07/18/22 at 0738, Until Discontinu ed, Routine [id number]-LR IV 2021-08 Yes 1000mL at 1-125 Un rebecca infusion 1-22 mL/hr, IV ity of 1,000 mL 13:38: Infusion, [place] 22 TITRATE, Medical Starting Branch on Sun07/18/22 at 0738, Until Discontinu ed, Routine 2021-08 Yes [id number] 1{packe Take 1 Univers vit 1-07 t} Packet by ity of 33-iron-fol 00:00: mouth in [place] ic-dha 00 the Medical (SELECT-OB morning. Branc h + DHA) 29 mg iron-1 mg -250 mg combo pack 2021-08 Yes [id number] 1{packe Take 1 Univers vit 1-07 t} Packet by ity of 33-iron-fol 00:00: mouth in [place] ic-dha 00 the Medical (SELECT-OB morning. Branc h + DHA) 29 mg iron-1 mg -250 mg combo pack 2021-08 Yes [id number] 1{packe Take 1 Univers vit 1-07 t} Packet by ity of 33-iron-fol 00:00: mouth in [place] ic-dha 00 the Medical (SELECT-OB morning. Branc h + DHA) 29 mg iron-1 mg -250 mg combo pack 2021-08 Yes [id number] 1{packe Take 1 Univers vit 1-07 t} Packet by ity of 33-iron-fol 00:00: mouth in [place] ic-dha 00 the Medical (SELECT-OB morning. Branc h + DHA) 29 mg iron-1 mg -250 mg combo pack 2021-08 Yes [id number] 1{packe Take 1 Univers vit 1-07 t} Packet by ity of 33-iron-fol 00:00: mouth in [place] ic-dha 00 the Medical (SELECT-OB morning. Branc h + DHA) 29 mg iron-1 mg -250 mg combo pack 2021-08 202- No [id number] 1{packe Take 1 Univers vit 1-07 11-24 t} Packet by ity of 33-iron-fol 00:00: 00:00 mouth in [place] ic-dha 00 :00 the Medical (SELECT-OB morning. Branc h + DHA) 29 mg iron-1 mg -250 mg combo pack ferrous Yes [id number] 325mg Take 1 Un rebecca sulfate 9-30 tablet by ity of (IRON, 00:00: mouth in [place] FERROUS 00 the Medical SULFATE,) morning. Branch 325 mg (65 mg iron) tablet ascorbic Yes [id number] 500mg Take 1 U nivers acid, 9-30 tablet by ity of vitamin C, 00:00: mouth in [facility] as 500 mg 00 the Medical tablet morning Branch and 1 tablet at noon and 1 tablet in the evening. ferrous Yes [id number] 325mg Take 1 Un rebecca sulfate 9-30 tablet by ity of (IRON, 00:00: mouth in [place] FERROUS 00 the Medical SULFATE,) morning. Branch 325 mg (65 mg iron) tablet ascorbic Yes [id number] 500mg Take 1 U nivers acid, 9-30 tablet by ity of vitamin C, 00:00: mouth in [place] 500 mg 00 the Medical tablet morning Branch and 1 tablet at noon and 1 tablet in the evening. ferrous Yes [id number] 325mg Take 1 Un rebecca sulfate 9-30 tablet by ity of (IRON, 00:00: mouth in [place] FERROUS 00 the Medical SULFATE,) morning. Branch 325 mg (65 mg iron) tablet ascorbic 2022-0 Yes [id number] 500mg Take 1 U nivers acid, 9-30 tablet by ity of vitamin C, 00:00: mouth in [place] 500 mg 00 the Medical tablet morning Branch and 1 tablet at noon and 1 tablet in the evening. ferrous 0 Yes [id number] 325mg Take 1 Un rebecca sulfate 9-30 tablet by ity of (IRON, 00:00: mouth in [place] FERROUS 00 the Medical SULFATE,) morning. Branch 325 mg (65 mg iron) tablet ascorbic Yes [id number] 500mg Take 1 U nivers acid, 9-30 tablet by ity of vitamin C, 00:00: mouth in [place] 500 mg 00 the Medical tablet morning Branch and 1 tablet at noon and 1 tablet in the evening. ferrous 0 Yes [id number] 325mg Take 1 Un rebecca sulfate 9-30 tablet by ity of (IRON, 00:00: mouth in [place] FERROUS 00 the Medical SULFATE,) morning. Branch 325 mg (65 mg iron) tablet ascorbic Yes [id number] 500mg Take 1 U nivers acid, 9-30 tablet by ity of vitamin C, 00:00: mouth in [place] 500 mg 00 the Medical tablet morning Branch and 1 tablet at noon and 1 tablet in the evening. ferrous Yes [id number] 325mg Take 1 Un rebecca sulfate 9-30 tablet by ity of (IRON, 00:00: mouth in [place] FERROUS 00 the Medical SULFATE,) morning. Branch 325 mg (65 mg iron) tablet ascorbic Yes [id number] 500mg Take 1 U nivers acid, 9-30 tablet by ity of vitamin C, 00:00: mouth in [place] 500 mg 00 the Medical tablet morning Branch and 1 tablet at noon and 1 tablet in the evening. ferrous 0 Yes [id number] 325mg Take 1 Un rebecca sulfate 9-30 tablet by ity of (IRON, 00:00: mouth in [place] FERROUS 00 the Medical SULFATE,) morning. Branch 325 mg (65 mg iron) tablet ascorbic 0 Yes [id number] 500mg Take 1 U nivers acid, 9-30 tablet by ity of vitamin C, 00:00: mouth in [place] 500 mg 00 the Medical tablet morning Branch and 1 tablet at noon and 1 tablet in the evening. ferrous 2022-0 Yes [id number] 325mg Take 1 Un rebecca sulfate 9-30 tablet by ity of (IRON, 00:00: mouth in [place] FERROUS 00 the Medical SULFATE,) morning. Branch 325 mg (65 mg iron) tablet ascorbic 0 Yes [id number] 500mg Take 1 U nivers acid, 9-30 tablet by ity of vitamin C, 00:00: mouth in [place] 500 mg 00 the Medical tablet morning Branch and 1 tablet at noon and 1 tablet in the evening. ferrous 0 Yes [id number] 325mg Take 1 Un rebecca sulfate 9-30 tablet by ity of (IRON, 00:00: mouth in [place] FERROUS 00 the Medical SULFATE,) morning. Branch 325 mg (65 mg iron) tablet ascorbic 0 Yes [id number] 500mg Take 1 U nivers acid, 9-30 tablet by ity of vitamin C, 00:00: mouth in [place] 500 mg 00 the Medical tablet morning Branch and 1 tablet at noon and 1 tablet in the evening. ferrous 0 Yes [id number] 325mg Take 1 Un rebecca sulfate 9-30 tablet by ity of (IRON, 00:00: mouth in [place] FERROUS 00 the Medical SULFATE,) morning. Branch 325 mg (65 mg iron) tablet ascorbic Yes [id number] 500mg Take 1 U nivers acid, 9-30 tablet by ity of vitamin C, 00:00: mouth in [place] 500 mg 00 the Medical tablet morning Branch and 1 tablet at noon and 1 tablet in the evening. ferrous 0 Yes [id number] 325mg Take 1 Un rebecca sulfate 9-30 tablet by ity of (IRON, 00:00: mouth in [place] FERROUS 00 the Medical SULFATE,) morning. Branch 325 mg (65 mg iron) tablet ascorbic 0 Yes [id number] 500mg Take 1 U nivers acid, 9-30 tablet by ity of vitamin C, 00:00: mouth in [place] 500 mg 00 the Medical tablet morning Branch and 1 tablet at noon and 1 tablet in the evening. ferrous 0 Yes [id number] 325mg Take 1 Un rebecca sulfate 9-30 tablet by ity of (IRON, 00:00: mouth in [place] FERROUS 00 the Medical SULFATE,) morning. Branch 325 mg (65 mg iron) tablet ascorbic 2022-0 Yes [id number] 500mg Take 1 U nivers acid, 05-26 tablet by ity of vitamin C, 00:00: mouth in [place] 500 mg 00 the Medical tablet morning Branch and 1 tablet at noon and 1 tablet in the evening. ferrous 2021- No [id number] 325mg Take 1 U nivers sulfate 05-26 11-24 tablet by ity of (IRON, 00:00: 00:00 mouth in [place] FERROUS 00 :00 the Medical SULFATE,) morning. Branch 325 mg (65 mg iron) tablet ascorbic 2021- No [id number] 500mg Take 1 Univers acid, 05-26 1124 tablet by ity of vitamin C, 00:00: 00:00 mouth in [place] 500 mg 00 :00 the Medical tablet morning Branch and 1 tablet at noon and 1 tablet in the evening. amoxicillin 2021- No [id number] 500mg Take 1 Univers 500 mg 05-08 tablet by ity of tablet 00:00: 04:59 mouth in [place] 00 :00 the Medical morning Branch and 1 tablet in the evening. Do all this for 10 days. proMETHazin Yes [id number] 25mg Take 1 Univers e 25 mg 4-13 tablet by ity of tablet 00:00: mouth [place] 00 every 6 Medical (six) Branch hours as needed for Nausea and Vomiting (N/V). proMETHazin Yes [id number] 25mg Take 1 Univers e 25 mg 4-13 tablet by ity of tablet 00:00: mouth [place] 00 every 6 Medical (six) Branch hours as needed for Nausea and Vomiting (N/V). proMETHazin 0 Yes [id number] 25mg Take 1 Univers e 25 mg 4-13 tablet by ity of tablet 00:00: mouth [place] 00 every 6 Medical (six) Branch hours as needed for Nausea and Vomiting (N/V). proMETHazin 0 Yes [id number] 25mg Take 1 Univers e 25 mg 4-13 tablet by ity of tablet 00:00: mouth [place] 00 every 6 Medical (six) Branch hours as needed for Nausea and Vomiting (N/V). proMETHazin Yes [id number] 25mg Take 1 Univers e 25 mg 4-13 tablet by ity of tablet 00:00: mouth [place] 00 every 6 Medical (six) Branch hours as needed for Nausea and Vomiting (N/V). proMETHazin 2021-0 Yes [id number] 25mg Take 1 Univers e 25 mg 4-13 tablet by ity of tablet 00:00: mouth [place] 00 every 6 Medical (six) Branch hours as needed for Nausea and Vomiting (N/V). proMETHazin 2021-0 Yes [id number] 25mg Take 1 Univers e 25 mg 4-13 tablet by ity of tablet 00:00: mouth [place] 00 every 6 Medical (six) Branch hours as needed for Nausea and Vomiting (N/V). proMETHazin 2021-0 Yes [id number] 25mg Take 1 Univers e 25 mg 4-13 tablet by ity of tablet 00:00: mouth [place] 00 every 6 Medical (six) Branch hours as needed for Nausea and Vomiting (N/V). proMETHazin 2021-0 Yes [id number] 25mg Take 1 Univers e 25 mg 4-13 tablet by ity of tablet 00:00: mouth [place] 00 every 6 Medical (six) Branch hours as needed for Nausea and Vomiting (N/V). proMETHazin 2021-0 Yes [id number] 25mg Take 1 Univers e 25 mg 4-13 tablet by ity of tablet 00:00: mouth [place] 00 every 6 Medical (six) Branch hours as needed for Nausea and Vomiting (N/V). proMETHazin 2021-0 Yes [id number] 25mg Take 1 Univers e 25 mg 4-13 tablet by ity of tablet 00:00: mouth [place] 00 every 6 Medical (six) Branch hours as needed for Nausea and Vomiting (N/V). proMETHazin 2021-0 Yes [id number] 25mg Take 1 Univers e 25 mg 4-13 tablet by ity of tablet 00:00: mouth [place] 00 every 6 Medical (six) Branch hours as needed for Nausea and Vomiting (N/V). proMETHazin 2-0 Yes [id number] 25mg Take 1 Univers e 25 mg 4-13 tablet by ity of tablet 00:00: mouth [place] 00 every 6 Medical (six) Branch hours as needed for Nausea and Vomiting (N/V). proMETHazin 2-0 2022- No [id number] 25mg Take 1 Univers e 25 mg 4-13 11-24 tablet by ity of tablet 00:00: 00:00 mouth [place] 00 :00 every 6 Medical (six) Branch hours as needed for Nausea and Vomiting (N/V). Yes [id number] 1{packe Take 1 Univers vit 3-30 t} Packet by ity of 33-iron-fol 00:00: mouth [place] ic-dha 00 daily. Medical (SELECT-OB Branch + DHA) 29 mg iron-1 mg -250 mg combo pack Yes [id number] 1{packe Take 1 Univers vit 3-30 t} Packet by ity of 33-iron-fol 00:00: mouth [place] ic-dha 00 daily. Medical (SELECT-OB Branch + DHA) 29 mg iron-1 mg -250 mg combo pack Yes [id number] 1{packe Take 1 Univers vit 3-30 t} Packet by ity of 33-iron-fol 00:00: mouth [place] ic-dha 00 daily. Medical (SELECT-OB Branch + DHA) 29 mg iron-1 mg -250 mg combo pack Yes [id number] 1{packe Take 1 Univers vit 3-30 t} Packet by ity of 33-iron-fol 00:00: mouth [place] ic-dha 00 daily. Medical (SELECT-OB Branch + DHA) 29 mg iron-1 mg -250 mg combo pack 0 Yes [id number] 1{packe Take 1 Univers vit 3-30 t} Packet by ity of 33-iron-fol 00:00: mouth [place] ic-dha 00 daily. Medical (SELECT-OB Branch + DHA) 29 mg iron-1 mg -250 mg combo pack Yes [id number] 1{packe Take 1 Univers vit 3-30 t} Packet by ity of 33-iron-fol 00:00: mouth [place] ic-dha 00 daily. Medical (SELECT-OB Branch + DHA) 29 mg iron-1 mg -250 mg combo pack Yes [id number] 1{packe Take 1 Univers vit 3-30 t} Packet by ity of 33-iron-fol 00:00: mouth [place] ic-dha 00 daily. Medical (SELECT-OB Branch + DHA) 29 mg iron-1 mg -250 mg combo pack 0 2022- No [id number] 1{packe Take 1 Univers vit 3-30 11-07 t} Packet by mariana of 33-iron-fol 00:00: 00:[place] ic-d[place] 00 :00 daily. Medical (SELECT-OB Branch + DHA) 29 mg iron-1 mg -250 mg combo pack Immunizations Ordered Filled Immunization Date Status Comments Sour e Immunization Name Name [facility] 2023-01-18 Completed University of 00:00:00 [facility] 2022-09-08 Completed University of 00:00: [facility] 2022-09-08 Completed University of 00:00:00 [facility] 2022-09-08 Completed University of 00:00:00 [facility] 2022-09-08 Completed University of 00[facility]00:00 [facility] 2022-09-08 Completed University of 00:00:00 [facility] 2022-09-08 Completed University of 00:00:00 [facility] 2022-09-08 Completed University of 00:00:00 [facility] 2022-07-20 Completed University of 00:00:00 [facility] 2022-07-20 Completed University of 00[facility]00:00 [facility] 2022-07-20 Completed University of 00:00:00 [facility] 2022-07-20 Completed University of 00:00:00 [facility] 2022-07-20 Completed University of 00:00:00 [facility] 2022-07-20 Completed University of 00:00:00 [facility] 2022-07-20 Completed University of 00:00:00 [facility] HPV9 2022-07-20 Completed University of 00:00:00 [facility] 2022-07-20 Completed University of 00:00:00 [facility] 2022-07-20 Completed University of 00:00:00 [facility] 2022-07-20 Completed University of 00:00:00 [facility] TDAP 2022-05-08 Completed University of 00:00:00 [facility] TDAP 2022-05-08 Completed University of 00:00:00 [facility] TDAP 2022-05-08 Completed University of 00:00:00 [facility] TDAP 2022-05-08 Completed University of 00:00:00 [facility] TDAP 2022-05-08 Completed University of 00:00:00 [facility] TDAP 2022-05-08 Completed University of 00:00:00 [place] [facility] TDAP 2022-05-08 Completed University of 00:00:00 [facility] TDAP 2022-05-08 Completed University of 00:00:00 [facility] TDAP 2022-05-08 Completed University of 00:00:00 [place] [facility] TDAP 2022-05-08 Completed University of 00:00:00 [place] [facility] TDAP 2022-05-08 Completed University of 00:00:00 [facility] TDAP 2022-05-08 Completed University of 00:00:00 [facility] TDAP 2022-05-08 Completed University of 00:00:00 [facility] TDAP 2022-05-08 Completed University of 00:00:00 [facility] TDAP 2022-05-08 Completed University of 00:00:00 [facility] TDAP 2022-05-08 Completed University of 00:00:00 [facility] TDAP 2022-05-08 Completed University of 00:00:00 [facility] TDAP 2022-05-08 Completed University of 00:00:00 [facility] TDAP 2022-05-08 Completed University of 00:00:00 [facility] TDAP 2022-05-08 Completed University of 00:00:00 [facility] TDAP 2022-05-08 Completed University of 00:00:00 [facility] TDAP 2022-05-08 Completed University of 00:00:00 [facility] TDAP 2022-05-08 Completed University of 00:00:00 [facility] TDAP 2022-05-08 Completed University of 00:00:00 [facility] TDAP 2009-08-27 Completed University of 00:00:00 [facility] TDAP 2009-08-27 Completed University of 00:00:00 [facility] TDAP 2009-08-27 Completed University of 00:00:00 [facility] TDAP 2009-08-27 Completed University of 00:00:00 [facility] TDAP 2009-08-27 Completed University of 00:00:00 [facility] TDAP 2009-08-27 Completed University of 00:00:00 [facility] TDAP 2009-08-27 Completed University of 00:00:00 [facility] TDAP 2009-08-27 Completed University of 00:00:00 [facility] TDAP 2009-08-27 Completed University of 00:00:00 [facility] TDAP 2009-08-27 Completed University of 00:00:00 [facility] TDAP 2009-08-27 Completed University of 00:00:00 [facility] TDAP 2009-08-27 Completed University of 00:00:00 [facility] TDAP 2009-08-27 Completed University of 00:00:00 [facility] TDAP 2009-08-27 Completed University of 00:00:00 [facility] TDAP 2009-08-27 Completed University of 00:00:00 [facility] TDAP 2009-08-27 Completed University of 00:00:00 [facility] TDAP 2009-08-27 Completed University of 00:00:00 [facility] TDAP 2009-08-27 Completed University of 00:00:00 [facility] TDAP 2009-08-27 Completed University of 00:00:00 [facility] TDAP 2009-08-27 Completed University of 00:00:00 [facility] TDAP 2009-08-27 Completed University of 00:00:00 [facility] TDAP 2009-08-27 Completed University of 00:00:00 [facility] TDAP 2009-08-27 Completed University of 00:00:00 [facility] TDAP 2009-08-27 Completed University of 00:00:00 [facility] Vital Signs Vital Name Observation Time Observation Value Comments Source Body temperature 2023-01-18 14:25:00 36.56 Michelle [facility] Respiratory rate 2023-01-18 14:25:00 20 /min [facility] Body weight 2023-01-18 14:25:00 72.938 kg [facility] BMI 2023-01-18 14:25:00 31.40 kg/m2 [facility] Systolic blood 2022-09-08 15:48:00 109 mm[Hg] Univer sity of pressure [facility] Diastolic blood 2022-09-08 15:48:00 62 mm[Hg] Unive rsity of pressure [facility] Heart rate 2022-09-08 15:48:00 65 /min [facility] [place] [facility] Respiratory rate 2022-09-08 15:48:00 18 /min Univ ersity of [place] [facility] Body weight 2022-09-08 15:48:00 71.532 kg [facility]i ty [facility] [place] [facility] BMI 2022-09-08 15:48:00 30.80 kg/m2 [facility] [place] [facility] Systolic blood 2022-08-09 21:17:00 105 mm[Hg] Univer sity of pressure [place] [facility] Diastolic blood 2022-08-09 21:17:00 77 mm[Hg] Unive rsity of pressure [place] [facility] Heart rate 2022-08-09 21:17:00 88 /min [facility]i [facility] [place] [facility] Body temperature 2022-08-09 21:17:00 36.06 Michelle [facility] [place] [facility] Respiratory rate 2022-08-09 21:17:00 17 /min Univ [facility] [place] [facility] Body height 2022-08-09 21:17:00 152.4 cm [facility] [place] [facility] Body weight 2022-08-09 21:17:00 70.943 kg [facility] [place] [facility] BMI 2022-08-09 21:17:00 30.54 kg/m2 [facility] [place] [facility] Systolic blood 2022-07-27 14:45:00 137 mm[Hg] Univer sity of pressure [place] [facility] Diastolic blood 2022-07-27 14:45:00 84 mm[Hg] Unive rsity of pressure [place] [facility] Heart rate 2022-07-27 14:45:00 82 /min [facility] [place] [facility] Body temperature 2022-07-27 14:45:00 36.61 Michelle [facility] [place] [facility] Respiratory rate 2022-07-27 14:45:00 18 /min Univ [facility] [place] [facility] Body height 2022-07-27 14:45:00 152.4 cm [facility] [place] [facility] Body weight 2022-07-27 14:45:00 76.289 kg [facility] [place] [facility] BMI 2022-07-27 14:45:00 32.85 kg/m2 [facility] [place] [facility] Systolic blood 2022-07-20 22:50:00 99 mm[Hg] Univer sity of pressure [place] [facility] Diastolic blood 2022-07-20 22:50:00 63 mm[Hg] Unive rsity of pressure [place] [facility] Heart rate 2022-07-20 22:50:00 92 /min Universi ty of [facility] Body temperature 2022-07-20 22:50:00 36.61 Michelle Univ ersity of [facility] Respiratory rate 2022-07-20 22:50:00 17 /min Univ ersity of [facility] Oxygen saturation in 2022-07-20 22:50:00 100 /min University Arterial blood by [facility] Pulse oximetry Branch Body height 2022-07-18 13:43:00 152.4 cm [facility] [place] [facility] Body weight 2022-07-18 13:43:00 76.3 kg [facility] [place] [facility] BMI 2022-07-18 13:43:00 32.85 kg/m2 Universi ty of [facility] Systolic blood 2022-07-13 17:06:00 121 mm[Hg] Univer sity of pressure [place] [facility] Diastolic blood 2022-07-13 17:06:00 52 mm[Hg] Unive rsity of pressure [place] [facility] Heart rate 2022-07-13 17:06:00 90 /min [facility]i [facility] [place] [facility] Body temperature 2022-07-13 17:06:00 36.06 Michelle [facility] [place] [facility] Respiratory rate 2022-07-13 17:06:00 18 /min [facility] [place] [facility] [place] Body weight 2022-07-13 17:06:00 76.295 kg [facility]i [facility] [place] [facility] BMI 2022-07-13 17:06:00 32.85 kg/m2 [facility] [place] [facility] Systolic blood 2022-07-05 16:01:00 112 mm[Hg] Univer sity of pressure [place] [facility] Diastolic blood 2022-07-05 16:01:00 66 mm[Hg] Unive rsity of pressure [place] [facility] Heart rate 2022-07-05 16:01:00 93 /min [facility] [place] [facility] Body temperature 2022-07-05 16:01:00 36.44 Michelle [facility] [place] [facility] Respiratory rate 2022-07-05 16:01:00 16 /min Univ ersity [facility] [place] [facility] Body height 2022-07-05 16:01:00 152.4 cm [facility] [place] [facility] Body weight 2022-07-05 16:01:00 73.936 kg [facility] [place] [facility] BMI 2022-07-05 16:01:00 31.83 kg/m2 [facility] [place] [facility] Systolic blood 2022-06-28 15:49:00 111 mm[Hg] Univer sity of pressure [place] [facility] Diastolic blood 2022-06-28 15:49:00 71 mm[Hg] Unive rsity of pressure [place] [facility] Heart rate 2022-06-28 15:49:00 87 /min [facility] [place] [facility] Body temperature 2022-06-28 15:49:00 36 Michelle [facility] [place] [facility] Respiratory rate 2022-06-28 15:49:00 18 /min Univ [facility] [place] [facility] Body height 2022-06-28 15:49:00 152.4 cm [facility] [place] [facility] Body weight 2022-06-28 15:49:00 73.738 kg [facility] [place] [facility] BMI 2022-06-28 15:49:00 31.75 kg/m2 [facility] [place] [facility] Systolic blood 2022-06-21 15:37:00 126 mm[Hg] Univer sity of pressure [place] [facility] Diastolic blood 2022-06-21 15:37:00 77 mm[Hg] Unive rsity of pressure [place] [facility] Heart rate 2022-06-21 15:37:00 99 /min [facility] [place] [facility] Body temperature 2022-06-21 15:37:00 36.22 Michelle [facility] [place] [facility] Respiratory rate 2022-06-21 15:37:00 18 /min Univ [facility] [place] [facility] Body height 2022-06-21 15:37:00 152.4 cm [facility] [place] [facility] Body weight 2022-06-21 15:37:00 74.844 kg [facility] [place] [facility] BMI 2022-06-21 15:37:00 32.22 kg/m2 [facility] [place] [facility] Systolic blood 2022-06-08 16:05:00 117 mm[Hg] Univer sity of pressure [place] [facility] Diastolic blood 2022-06-08 16:05:00 72 mm[Hg] Unive rsity of pressure [place] [facility] Heart rate 2022-06-08 16:05:00 93 /min [facility] [place] [facility] Body temperature 2022-06-08 16:05:00 35.72 Michelle [facility] [place] [facility] Respiratory rate 2022-06-08 16:05:00 18 /min [facility] [place] [facility] Body weight 2022-06-08 16:05:00 72.077 kg [facility] [place] [facility] BMI 2022-06-08 16:05:00 31.03 kg/m2 [facility] [place] [facility] Systolic blood 2022-05-26 18:07:00 92 mm[Hg] Univer sity of pressure [place] [facility] Diastolic blood 2022-05-26 18:07:00 66 mm[Hg] Unive rsity of pressure [place] [facility] Heart rate 2022-05-26 18:07:00 92 /min [facility] [place] [facility] Body temperature 2022-05-26 18:07:00 36.22 Michelle [facility] [place] [facility] Respiratory rate 2022-05-26 18:07:00 18 /min Univ [facility] [place] [facility] Body height 2022-05-26 18:07:00 152.4 cm [facility] [place] [facility] Body weight 2022-05-26 18:07:00 68.692 kg [facility] [place] [facility] BMI 2022-05-26 18:07:00 29.58 kg/m2 [facility] [place] [facility] Systolic blood 2022-05-08 14:01:00 120 mm[Hg] Univer sity of pressure [place] [facility] Diastolic blood 2022-05-08 14:01:00 68 mm[Hg] Unive rsity of pressure [place] [facility] Heart rate 2022-05-08 14:01:00 92 /min [facility] [place] [facility] Body temperature 2022-05-08 14:01:00 36.17 Michelle [facility] [place] [facility] Respiratory rate 2022-05-08 14:01:00 18 /min Univ [facility] [place] [facility] Body weight 2022-05-08 14:01:00 68.312 kg [facility] [place] [facility] BMI 2022-05-08 14:01:00 29.41 kg/m2 [facility] Procedures Procedure Date / Time Performing Clinician Source Performed GARDASIL 9 (HPV 9V) 2023-01-18 14:30:03 Maria Fernanda Bennett [facility] NOTICE OF RESEARCH 2023-01-17 05:01:00 Doctor Unassigned, [facility] PARTICIPATION [place] [facility] GARDASIL 9 (HPV 9V) 2022-09-08 16:14:06 Renay Pepper [facility] PATIENT CORRESPONDENCE 2022-09-08 06:01:00 Doctor Unassigned, [facility] (LETTERS, USPS [place] [facility] [place] DOCUMENTATION) CBC WITH DIFF 2022-07-20 11:25:00 Jo [facility] VENOUS CORD GAS 2022-07-19 17:31:00 [facility] CENTRAL NEURAXIAL BLOCK 2022-07-19 04:45:16 Colin Dodge [facility] CBC WITH DIFF 2022-07-18 14:37:00 Ricardo [facility] HEPATITIS B SURFACE 2022-07-18 14:37:00 Gloria Silva [facility] ANTIGEN [facility] HIV 1/2 AG-AB WITH REFLEX 2022-07-18 14:37:00 Gloria Silva [facility] GALV ONLY - SYPHILIS 2022-07-18 14:37:00 Gloria Silva [facility] IGG/IGM [facility] HB ABO GROUPING 2022-07-18 14:02:00 [facility] RHO [facility] IMMUNE GLOBULIN 2022-07-18 14:02:00 Jo Chow [facility] POCT URINALYSIS 2022-07-13 17:10:00 Emma gNuyen [facility] POCT URINALYSIS 2022-07-05 00:00:00 Emma Nguyen [facility] CBC WITH DIFF 2022-06-28 16:26:00 Maria Fernanda Bennett [facility] POCT URINALYSIS 2022-06-28 15:50:00 Emma Nguyen [facility] REFERRAL- 2022-06-28 05:01:00 Doctor [facility] REQUEST/RESPONSE [place] [facility] POCT URINALYSIS 2022-06-21 15:39:00 Emma Nguyen [facility] POCT URINALYSIS 2022-06-08 16:11:00 Emma Nguyen [facility] POCT URINALYSIS 2022-05-26 18:08:00 Emma Nguyen [facility] POCT URINALYSIS 2022-05-08 14:14:00 Emma Nguyen [facility] TDAP VACCINE, >11 YRS, IM 2022-05-08 14:00:20 Emma Nguyen [facility] Encounters Start End Encounter Admission Attending Care Care Encounter Source Date/Time Date/Time Type Type Clinicians Facility Department ID 2023-01-18 2023-01-[address] [facility] [id number] John 14:31:14 14:31:14 [id number] F Johnny 2023-01-18 2023-01-18 Nurse Visit, ChapisRmchp Nurse [facility] 1.[id number] 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 10 ity [facility] 4.2.7.2.686 Hammad as MATERNAL [id number] [facility] ical & CHILD [address] [place] [address] 2023-01-18 2023-01-18 Outpatient R DAYLIN [facility] [id number] Univers 09:30:00 09:30:00 MARIA FERNANDA squires f [facility] 2023-01-17 2023-01-17 Orders Doctor BECKMAN 1.2.840.114 [id number] Univers 00:00:00 00:00:00 Only Unassigned, VIPIN 350.1.13.10 [facility] 4.2.7.2.686 Hammad as [id number] [address] 2022-09-12 2022-09-12 Social Science Analyst Lab, [facility] 1.2.840. 114 [id number] Univers 10:15:00 11:09:49 Visit Maria Fernanda Bennett CORK COMPOUNDER 350.1.13. 10 ity of [facility] 4.2.7.2.686 Hammad as MATERNAL [id number] [facility] ical & CHILD [address] [place] [address] 2022-09-12 2022-09-12 Outpatient R DAYLIN [facility] [id number] Univers 10:15:00 10:15:00 MARIA FERNANDA peña o f [facility] 2022-09-12 2022-09-12 Outpatient R [facility] [id number] Univers 09:45:00 09:45:00 ity [facility] 2022-09-08 2022-09-08 [facility] [id number] Univers 09:15:00 10:21:05 [facility]22-[facility]-08 2022-09-08 Office Provider, [facility] 1 .2.840.114 [id number] Univers 09:15:00 10:21:05 Visit Renay Pepper CORK COMPOUNDER 350.1.13.1 0 ity of [facility] 4.2.7.2.686 Hammad as MATERNAL [id number] [facility] & CHILD [address] [place] [address] 2022-09-08 2022-09-08 Orders Doctor BECKMAN 1.2.840.114 [id number] Univers 00:00:00 00:00:00 Only Unassigned, VIPIN 350.1.13.[address] [place] [facility] 4.2.7.2.686 Hammad as [id number] [address] 2022-08-09 2022-08-09 Outpatient R SHANTELLE [facility] [id number] Univers 15:15:00 16:02:57 RENAY peña [facility] 2022-08-09 2022-08-09 [facility] 1 .2.840.114 [id number] Univers 15:15:00 16:02:57 Renay Pepper CORK COMPOUNDER 350.1.13. 10 ity of Visit REGIONAL 4.2.7.2.686 Hammad as MATERNAL [id number] [facility] ical & CHILD [address] [place] [address] 2022-07-27 2022-07-27 Outpatient R SHANTELLE [facility] [id number] Univers 08:30:00 10:32:53 RENAY ity [facility] 2022-07-27 2022-07-27 Routine Provider, [facility] 1 .2.840.114 [id number] Univers 08:30:00 10:32:53 Renay Pepper CORK COMPOUNDER 350.1.13. 10 ity of Visit [facility] 4.2.7.2.686 Hammad as MATERNAL [id number] [facility] & [address] 2022-07-21 2022-07-21 [facility]phone [facility] 1.2.840.114 [id number] Univers 00:00:00 00:00:00 Maria Fernanda Longoria CORK COMPOUNDER 350.1.13.10 ity of [facility] 4.2.7.2.686 Hammad as MATERNAL [id number] [facility] & [address] 2022-07-18 2022-07-20 Inpatient P SIL [facility] SUSAN [id number] Univers 07:11:00 17:19:00 ARIAS peña [facility] 2022-07-18 2022-07-20 Hospital KARUNA Yin 1.2.106.652 [id number] Univers 07:11:00 17:19:00 Encounter Arias LEW 350.1.13.[address] [facility] 4.2.7.2.686 Hammad as [id number] [address] 2022-07-18 2022-07-19 Anesthesia Colin Dodge 1.2.840.11 [id number] Univers 22:44:00 13:07:00 Event Benoit Murrieta 350.1.13.[address] [facility] 4.2.7.2.686 Hammad as [id number] [address] 2022-07-13 2022-07-13 Outpatient R AKINSIPE, [facility] [id number] Univers 11:00:00 11:24:17 MARIA FERNANDA ity o f [facility] 2022-07-13 2022-07-13 Routine Akinsipe, [facility] 1.2.750.038 [id number] Univers 11:00:00 11:24:17 Maria Fernanda C CORK COMPOUNDER 350.1.13.10 ity of Visit REGIONAL 4.2.7.2.686 Hammad as MATERNAL [id number] [facility] ical & CHILD [address] [place] [address] 2022-07-12 2022-07-12 Telephone [facility] 1.2.840.114 [id number] Univers 00:00:00 00:00:00 Maria Fernanda C CORK COMPOUNDER 350.1.13.10 ity of REGIONAL 4.2.7.2.686 Hammad as MATERNAL [id number] [facility] ical & CHILD [address] [place] [address] 2022-07-05 2022-07-05 Outpatient R AKINSIPE, [facility] [id number] Univers 09:45:00 10:18:22 MARIA FERNANDA ity o [facility] 2022-07-05 2022-07-05 [facility] 1.2.474.876 [id number] Univers 09:45:00 10:18:22 Maria Fernanda C CORK COMPOUNDER 350.1.13.10 ity of Visit REGIONAL 4.2.7.2.686 Hammad as MATERNAL [id number] [facility] & CHILD [address] [place] [address] 2022-06-30 2022-06-30 Telephone [facility] 1.2.840.114 [id number] Univers 00:00:00 00:00:00 Maria Fernanda C CORK COMPOUNDER 350.1.13.10 ity of REGIONAL 4.2.7.2.686 Hammad as MATERNAL [id number] [facility] ical & CHILD [address] [place] [address] 2022-06-28 2022-06-28 Outpatient R AKINSIPE, [facility] [id number] Univers 10:45:00 11:27:27 MARIA FERNANDA ity o f [facility] 2022-06-28 2022-06-28 Routine Akinsipe, [facility] 1.2.375.285 [id number] Univers 10:45:00 11:27:27 Maria Fernanda C CORK COMPOUNDER 350.1.13.10 ity of Visit [facility] 4.2.7.2.686 Hammad as MATERNAL [id number] [facility] ical & CHILD [address] [place] [address] 2022-06-28 2022-06-28 Orders Doctor KARUNA 1.2.840.114 [id number] Univers 00:00:00 00:00:00 Only Unassigned, VIPIN 350.1.13.[address] [place] [facility] 4.2.7.2.686 Hammad as [id number] [address] 2022-06-21 2022-06-21 [facility] [id number] Univers 10:30:00 10:56:10 MARIA FERNANDA ity o f [facility] 2022-06-21 2022-06-21 Routine [facility], [facility] 1.2.749.117 [id number] Univers 10:30:00 10:56:10 Maria Fernanda C CORK COMPOUNDER 350.1.13.10 ity of Visit [facility] 4.2.7.2.686 Hammad as MATERNAL [id number] [facility] & [address] 2022-06-21 2022-06-21 Outpatient R PATRICK [facility] [id number] Univers 10:00:00 10:00:00 EMMA peña o f [facility] 2022-06-08 2022-06-08 Outpatient R BELEN, [facility] [id number] Univers 11:00:00 12:00:34 JERICA peña [facility] 2022-06-08 2022-06-08 Routine Provider, [facility] 1 .2.840.114 [id number] Univers 11:00:00 12:00:34 Emma Nguyen R CORK COMPOUNDER 350.1.13.1 0 ity of Visit Tierney Jacobs [facility] 4.2.7.2.686 [facility] MATERNAL [phone] Medical & CHILD [address] [place] [address] 2022-05-26 2022-05-26 Outpatient R DILLAN SORIANO [facility] [id number] Univers 12:45:00 13:23:33 DILLAN SORIANO itprabhu of [facility] 2022-05-26 2022-05-26 Routine Provider, [facility] 1 .2.840.114 [id number] Univers 12:45:00 13:23:33 Dillan Soriano CORK COMPOUNDER 350.1.13.10 ity of Visit REGIONAL 4.2.7.2.686 Hammad as MATERNAL [id number] [facility] & [address] 2022-05-22 2022-05-22 Outpatient R PATRICK [facility] [id number] Univers 09:45:00 09:45:00 ROSHUNDA ity o [facility] 2022-05-08 2022-05-08 Outpatient R PATRICK [facility] [id number] Univers 08:45:00 09:37:09 ROSHUNDA ity o [facility] 2022-05-08 2022-05-08 [facility] 1.2.840.114 [id number] Univers 08:45:00 09:37:09 Roshunda R CORK COMPOUNDER 350.1.13.10 ity of Visit REGIONAL 4.2.7.2.686 Hammad as MATERNAL [id number] [facility] & CHILD [address] [place] [address] 2022-05-08 2022-05-08 Outpatient Romel NGUYEN [facility] [id number] Univers 08:45:00 08:45:00 ROSHUNDA ity o [facility] 2022-04-18 2022-04-18 Telephone [facility] 1.2.329.845 [id number] Univers 00:00:00 00:00:00 Roshunda R CORK COMPOUNDER 350.1.13.10 ity of REGIONAL 4.2.7.2.686 Hammad as MATERNAL [id number] [facility] & CHILD [address] [place] [address] 2022-04-17 2022-04-17 Outpatient R PATRICK [facility] [id number] Univers 08:00:00 09:08:41 ROSHUNDA ity o f [facility] 2022-04-17 2022-04-17 Routine [facility] 1.2.840.114 [id number] Univers 08:00:00 09:08:41 Roshunda R CORK COMPOUNDER 350.1.13.10 ity of Visit REGIONAL 4.2.7.2.686 Hammad as MATERNAL [id number] Med ical & CHILD [address] [place] [address] 2022-04-03 2022-04-03 Outpatient R PATRICK [facility] [id number] Univers 13:00:00 13:35:24 ROSHUNDA ity o f [facility] 2022-04-03 2022-04-03 Routine [facility] 1.2.840.114 [id number] Univers 13:00:00 13:35:24 Roshunda R CORK COMPOUNDER 350.1.13.10 ity of Visit REGIONAL 4.2.7.2.686 Hammad as MATERNAL [id number] [facility] ical & CHILD [address] [place] [address] 2022-03-13 2022-03-13 Abstract Patrick [facility] 1.2.840.114 [id number] Univers 00:00:00 00:00:00 Roshunda R CORK COMPOUNDER 350.1.13.10 ity of REGIONAL 4.2.7.2.686 Hammad as MATERNAL [id number] [facility] ical & CHILD [address] [place] [address] 2022-03-08 2022-03-08 Social Science Analyst Ultrasound, [facility] 1.2 .840.114 [id number] Univers 14:15:00 15:07:00 Visit Christina Schwab CORK COMPOUNDER 350.1. 13.10 ity of REGIONAL 4.2.7.2.686 Hammad as MATERNAL [id number] Med ical & CHILD [address] [facility] 2022-03-08 2022-03-08 Outpatient Marcela MURRAY [facility] [id number] Univers 14:15:00 14:15:00 KATIE it y of S, VASQUEZ [facility] 2022-03-06 2022-03-06 Outpatient R BRANT JANICE [facility] [id number] Univers 14:30:00 14:53:30 JANICE GUO [facility] 2022-03-06 2022-03-06 Outpatient R LUPE GUOILY [facility] [id number] Univers 14:30:00 14:53:30 JANICE GUO [facility] 2022-03-06 2022-03-06 Routine Provider, [facility] 1 .2.840.114 [id number] Univers 14:30:00 14:53:30 Janice Guo CORK COMPOUNDER 350.1.13.10 ity of Visit REGIONAL 4.2.7.2.686 Hammad as MATERNAL [id number] Med ical & CHILD [address] [place] [address] 2022-02-08 2022-02-08 Telephone [facility] 1.2.092.397 [id number] Univers 00:00:00 00:00:00 Emma Urena CORK COMPOUNDER 350.1.13.10 ity of REG[facility]AL 4.2.7.2.686 Hammad as MATERNAL [id number] [facility] & CHILD [address] [place] [address] 2022-02-07 2022-02-07 Telephone [facility] 1.2.015.499 [id number] Univers 00:00:00 00:00:00 Emma R CORK COMPOUNDER 350.1.13.10 ity of [facility] 4.2.7.2.686 Hammad as MATERNAL [id number] Med ical & CHILD [address] [place] [address] 2022-02-06 2022-02-06 Outpatient R PATRICK [facility] [id number] Univers 10:45:00 13:32:31 EMMA peña o f [facility] 2022-02-06 2022-02-06 Routine [facility] 1.2.840.114 [id number] Univers 10:45:00 13:32:31 Emma Urena CORK COMPOUNDER 350.1.13.10 ity of Visit REGIONAL 4.2.7.2.686 Hammad as MATERNAL [id number] [facility] & CHILD [address] [place] [address] 2022-01-09 2022-01-09 Routine Patrick [facility] 1.2.840.114 [id number] Univers 13:00:00 13:00:00 Roshunda R CORK COMPOUNDER 350.1.13.10 ity of Visit REGIONAL 4.2.7.2.686 Hammad as MATERNAL [id number] [facility] & CHILD [address] [place] [address] 2022-01-09 2022-01-09 Outpatient R PATRICK [facility] [id number] Univers 13:00:00 11:58:36 ROSHUNDA ity o [facility] 2022-01-09 2022-01-09 Social Science Analyst Ultrasound, [facility] 1.2 .840.114 [id number] Univers 11:30:00 11:48:59 Visit Julia Leos CORK COMPOUNDER 350.1.13.10 ity of REGIONAL 4.2.7.2.686 Hammad as MATERNAL [id number] [facility] & CHILD [address] [facility] 2022-01-09 2022-01-09 Outpatient R REECE [facility] [id number] Univers 11:30:00 11:48:59 [facility]22-01-09 2022-01-09 Nadeem Nguyen [facility] 1.2.840.114 [id number] Univers 00:00:00 00:00:00 Roshunda R CORK COMPOUNDER 350.1.13.10 ity of REGIONAL 4.2.7.2.686 Hammad as MATERNAL [id number] [facility] & CHILD [address] [place] [address] 2021-12-20 2021-12-20 Outpatient R PATRICK [facility] [id number] Univers 13:45:00 14:42:59 ROSHUNDA ity o f [facility] 2021-12-20 2021-12-20 Routine [facility] 1.2.840.114 [id number] Univers 13:45:00 14:42:59 Roshunda R CORK COMPOUNDER 350.1.13.10 ity of Visit REGIONAL 4.2.7.2.686 Hammad as MATERNAL [id number] [facility] & CHILD [address] [place] [address] 2021-12-20 2021-12-20 Outpatient Romel NGUYEN [facility] [id number] Univers 13:45:00 13:45:00 EMMA peña o [facility] 2021-12-07 2021-12-07 Routine [facility] 1.2.961.713 [id number] Univers 15:30:00 15:45:00 Maria Fernanda C CORK COMPOUNDER 350.1.13.10 ity of Visit REGIONAL 4.2.7.2.686 Hammad as MATERNAL [id number] [facility] & CHILD [address] [place] [address] 2021-12-07 2021-12-07 Outpatient R DAYLIN [facility] [id number] Univers 15:30:00 15:30:00 MARIA FERNANDA ity o [facility] 2021-12-07 2021-12-07 Orders Doctor KARUNA 1.2.840.114 [id number] Univers 00:00:00 00:00:00 Only Unassigned, VIPIN 350.1.13.[address] [place] [facility] 4.2.7.2.686 Hammad as [id number] [address] 2021-11-24 2021-11-24 Social Science Analyst Lab, [facility]-Rm[facility] 1.2.840. 114 [id number] Univers 07:45:00 08:13:41 Visit Emma Nguyen CORK COMPOUNDER 350.1.13.10 ity of REGIONAL 4.2.7.2.686 Hammad as MATERNAL [id number] [facility] & CHILD [address] [place] [address] 2021-11-24 2021-11-24 Outpatient Romel NGUYEN [facility] [id number] Univers 07:45:00 08:13:41 EMMA peña o giorgi [facility] 2021-11-24 2021-11-24 Outpatient Romel NGUYEN [facility] [id number] Univers 07:45:00 07:45:00 EMMA peña o [facility] 2021-11-23 2021-11-23 Telephone [facility] 1.2.457.162 [id number] Univers 00:00:00 00:00:00 Roshunda R CORK COMPOUNDER 350.1.13.10 ity of REGIONAL 4.2.7.2.686 Hammad as MATERNAL [id number] [facility] & [address] 2021-11-23 2021-11-23 Telephone [facility] 12.848.539 [id number] Univers 00:00:00 00:00:00 Roshunda R CORK COMPOUNDER 350.1.13.10 ity of REGIONAL 4.2.7.2.686 Hammad as MATERNAL [id number] [address] 2021-11-22 2021-11-22 [facility] [id number] Univers 14:00:00 15:25:18 STACYMARLA squires [facility] 2021-11-22 2021-11-22 Initial [facility] 1.2.840.114 [id number] Univers 14:00:00 15:25:18 Roshunda R CORK COMPOUNDER 350.1.13.10 ity of Visit REGIONAL 4.2.7.2.686 Hammad as MATERNAL [id number] [address] 2021-11-22 2021-11-22 Outpatient [facility] [id number] Univers 13:30:00 13:52:04 TRACEERLINDA prabhu o [facility] Results Test Description Test Time Test Comments Results Result Comments Source RHO (D) IMMUNE GLOBULIN 2022-07-19 20:22:57 Test Item Value Reference Range Interpretation Comme nts RHIG CANDIDATE? (test code = No- see comment Patient is not a candidate for RhIg- 5055) Patient is Rh P ositive.Performed at [facility] Laboratory Services - GAL Blood [address] [place] [address] 19442Iycc Free: [phone] A No. [id number] [facility] [id number] 17:45:11 Test Item Value Reference Range Interpretation Comments VENOUS BASE EXCESS, mEq/L CORD (test code = 3291001632) VENOUS PH, CORD (test 7.25-7.45 code = 2986859012) VENOUS PC02, CORD See_Comment [Automate d message] The (test code = system which ge nerated 1095338379) this result tra nsmitted reference range : 27 - 49 mmHg. The refer ence range was not used to interpret this result as normal/abnormal . VENOUS PO2, CORD (test See_Comment [Aut omated message] The code = 6443290886) system [facility] generated this result tra nsmitted reference range : 17 - 41 mmHg. The refer ence range was not used to interpret this result as normal/abnormal . VENOUS BICARBONATE, See_Comment [Automa jeremie message] The CORD (test code = system [facility] generated 7104934901) this result tra nsmitted reference range : 12 - 29 mEq/L. The refe rence range was not used to interpret this result as normal/abnormal . [facility] [id number] 17:45:05 Test Item Value Reference Range Interpretation Comments BASE EXCESS, CORD mEq/L (test code = 1537025447) AC PH, CORD (BEAKER) 7.18-7.38 (test code = 4374411053) PC02, CORD (test code See_Comment [Auto mated message] The = 8508851439) system which g enerated this result transmit jeremie reference range : 32 - 66 mmHg. The refer ence range was not used to interpret this result as normal/abnormal . PO2, CORD (test code See_Comment [Autom ated message] The = 5798688804) system which g enerated this result transmit jeremie reference range : 10 - 30 mmHg. The refer ence range was not used to interpret this result as normal/abnormal . BICARBONATE, CORD See_Comment [Automate d message] The (test code = system which ge nerated this 3133278686) result transmit jeremie reference range : 17 - 27 mEq/L. The refe rence range was not used to interpret this result as normal/abnormal . [facility] - SYPHILIS [id number] 16:42:14 Test Item Value Reference Range Interpretation Comments Syphilis IgG/IgM (test Non-reactive Non-reactive code = 97639-6) XAVIER (test code = XAVIER) Non-reactive - No serologic evidence of T. pallidum infection. Cannot exclude incubating or early syphilis. Submit a second specimen in 2-4 weeks if syphilis is clinically suspected. Equivocal - Further testing to follow. Reactive - Further testing to follow. Lab Interpretation (test Normal code = 76266-0) [facility]/ AG-AB WITH [id number] 18:48:51 Test Item Value Reference Range Interpretation Comments HIV Negative Negative Semi-quantitative (test code = 04728-5) XAVIER (test code = Non-reactive for HIV-1 XAVIER) antigen and HIV-1/HIV-2 antibodies. ?No laboratory evidence of HIV infection. ?Repeat in 2-4 weeks if acute HIV infection is suspected. [facility] HospitalHepatitis B Surface [id number] 16:26:12 Test Item Value Reference Range Interpretation Comments HBsAg Semi-Quantitative (test code = Negative Negative 5195-3) [facility] HospitalType and Screen - ONCE [id number] 15:24:12 Test Item Value Reference Range Interpretation Comments ABO & RH (test code O POSITIVE Performe d at [facility] = 20) Laboratory Serv [facility] Blood [facility]3 [address] [facility] s [id number] Free: [phone] A No. [id number] IAT (test code = Negative Performed a t [facility] 1185) Laboratory Serv [facility] [address] [facility] s [address]Vmlg Free: [phone] A No. [id number] [facility] HospitalCBC with [id number] 15:19:07 Test Item Value Reference Range Interpretation Comments WBC (test code = See_Comment [Automated 7290-2) message] The sy stem which generated this result transmitted reference range : 4.30 - 11.10 10*3/?L. The reference range was not used to interpret this result as normal/abnormal . RBC (test code = See_Comment L [Automated 259-8) message] The sy stem which generated this result transmitted reference range : 3.93 - 5.25 10*6/?L. The reference range was not used to interpret this result as normal/abnormal . HGB (test code = 11.4 g/dL 11.6-15.0 L 718-7) HCT (test code = 34.4 % 35.7-45.2 L 4544-3) MCV (test code = 91.0 fL 80.6-95.5 787-2) MCH (test code = 30.2 pg 25.9-32.8 785-6) MCHC (test code = 33.1 g/dL 31.6-35.1 786-4) RDW-SD (test code = 46.8 fL 39.0-49.9 44501-3) RDW-CV (test code = 14.1 % 12.0-15.5 788-0) PLT (test code = See_Comment [Automated 777-3) message] The sy stem which generated this result transmitted reference range : 166 - 358 10*3/ ?L. The reference r johnathan was not used to interpret this result as normal/abnormal . MPV (test code = 11.3 fL 9.5-12.9 36012-7) NRBC/100 WBC (test See_Comment [Automat ed code = 5909053460) message] The system which generated this result transmitted reference range : 0.0 - 10.0 /100 WBCs. The refer ence range was not u sed to interpret th is result as normal/abnormal . NRBC x10^3 (test code See_Comment [Auto mated = 4963583494) message] The s ystem which generated this result transmitted reference range : 10*3/?L. The reference range was not used to interpret this result as normal/abnormal . GRAN MAT (NEUT) % 67.4 % (test code = 770-8) IMM GRAN % (test code 0.80 % = 6898726267) LYMPH % (test code = 20.8 % 736-9) MONO % (test code = 9.3 % 5905-5) EOS % (test code = 1.4 % 713-8) BASO % (test code = 0.3 % 706-2) GRAN MAT x10^3(ANC) 7.30 10*3/uL 1.88-7.09 H (test code = 2563845530) IMM GRAN x10^3 (test 0.09 10*3/uL 0.00-0.06 H code = 1790829099) LYMPH x10^3 (test code 2.25 10*3/uL 1.32-3.29 = 731-0) MONO x10^3 (test code 1.01 10*3/uL 0.33-0.92 H = 742-7) EOS x10^3 (test code = 0.15 10*3/uL 0.03-0.39 711-2) BASO x10^3 (test code 0.03 10*3/uL 0.01-0.07 = 704-7) Lab Interpretation Abnormal (test code = 90691-2) [facility] URINALYSIS W SPECIFIC [id number] 17:10:00 Test Item Value Reference Range Interpretation Comments POCT U SP GRAV (test code = * 1.005-1.025 3255) POCT PH U (test code = 3254) * 5-8 POCT U LEUK EST (test code = * Negative - Negative 3263) POCT U NIT (test code = 3262) * Negative - Negative POCT U PROT (test code = 3259) trace Negative - Negative POCT U GLU (test code = 3256) negative Negative - Negative POCT U KETONE (test code = 3258) * Negative - Negative POCT U UROBILI (test code = * 0.2-1 3260) POCT U BILI (test code = 3261) * Negative - Negative POCT U BLD (test code = 3257) * Negative - Negative POCT U COLOR (test code = 3266) POCT U APPEAR (test code = 3267) [facility] URINALYSIS W SPECIFIC [id number] 16:03:00 Test Item Value Reference Range Interpretation Comments POCT U SP GRAV (test code = . 1.005-1.025 3255) POCT PH U (test code = 3254) . 5-8 POCT U LEUK EST (test code = . Negative - Negative 3263) POCT U NIT (test code = 3262) . Negative - Negative POCT U PROT (test code = 3259) negative Negative - Negative POCT U GLU (test code = 3256) negative Negative - Negative POCT U KETONE (test code = 3258) . Negative - Negative POCT U UROBILI (test code = . 0.2-1 3260) POCT U BILI (test code = 3261) . Negative - Negative POCT U BLD (test code = 3257) . Negative - Negative POCT U COLOR (test code = 3266) yellow POCT U APPEAR (test code = 3267) clear [facility] WITH [id number] 08:25:20 Test Item Value Reference Range Interpretation Comments WBC (test code = See_Comment [Automated 6690-2) message] The sy stem which generated this result transmitted reference range : 4.30 - 11.10 10*3/?L. The reference range was not used to interpret this result as normal/abnormal . RBC (test code = See_Comment L [Automated 789-8) message] The sy stem which generated this result transmitted reference range : 3.93 - 5.25 10*6/?L. The reference range was not used to interpret this result as normal/abnormal . HGB (test code = 11.1 g/dL 11.6-15.0 L 718-7) HCT (test code = 33.0 % 35.7-45.2 L 4544-3) MCV (test code = 91.7 fL 80.6-95.5 787-2) MCH (test code = 30.8 pg 25.9-32.8 785-6) MCHC (test code = 33.6 g/dL 31.6-35.1 786-4) RDW-SD (test code = 45.1 fL 39.0-49.9 35279-7) RDW-CV (test code = 13.6 % 12.0-15.5 788-0) PLT (test code = See_Comment [Automated 777-3) message] The sy stem which generated this result transmitted reference range : 166 - 358 10*3/ ?L. The reference r johnathan was not used to interpret this result as normal/abnormal . MPV (test code = 11.5 fL 9.5-12.9 58463-5) NRBC/100 WBC (test See_Comment [Automat ed code = [id number]) message] The system which generated this result transmitted reference range : 0.0 - 10.0 /100 WBCs. The refer ence range was not u sed to interpret th is result as normal/abnormal . NRBC x10^3 (test code See_Comment [Auto mated = [id number]) message] The s ystem which generated this result transmitted reference range : 10*3/?L. The reference range was not used to interpret this result as normal/abnormal . GRAN MAT (NEUT) % 70.0 % (test code = 770-8) IMM GRAN % (test code 1.30 % = [id number]) LYMPH % (test code = 19.7 % 736-9) MONO % (test code = 7.4 % 5905-5) EOS % (test code = 1.3 % 713-8) BASO % (test code = 0.3 % 706-2) GRAN MAT x10^3(ANC) 7.33 10*3/uL 1.88-7.09 H (test code = [id number]) IMM GRAN x10^3 (test 0.14 10*3/uL 0.00-0.06 H code = 0570538749) LYMPH x10^3 (test code 2.07 10*3/uL 1.32-3.29 = 731-0) MONO x10^3 (test code 0.78 10*3/uL 0.33-0.92 = 742-7) EOS x10^3 (test code = 0.14 10*3/uL 0.03-0.39 711-2) BASO x10^3 (test code 0.03 10*3/uL 0.01-0.07 = 704-7) Lab Interpretation Abnormal (test code = 02066-5) [facility] URINALYSIS W SPECIFIC [id number] 15:50:00 Test Item Value Reference Range Interpretation Comments POCT U SP GRAV (test code = 3255) . 1.005-1.025 POCT PH U (test code = 3254) . 5-8 POCT U LEUK EST (test code = 3263) . Negative - Negative POCT U NIT (test code = 3262) . Negative - Negative POCT U PROT (test code = 3259) Trace Negative - Negative POCT U GLU (test code = 3256) Neg Negative - Negative POCT U KETONE (test code = 3258) . Negative - Negative POCT U UROBILI (test code = 3260) . 0.2-1 POCT U BILI (test code = 3261) . Negative - Negative POCT U BLD (test code = 3257) .. Negative - Negative POCT U COLOR (test code = 3266) . POCT U APPEAR (test code = 3267) .. [facility] URINALYSIS W SPECIFIC [id number] 15:39:00 Test Item Value Reference Range Interpretation Comments POCT U SP GRAV (test code = 3255) . 1.005-1.025 POCT PH U (test code = 3254) . 5-8 POCT U LEUK EST (test code = 3263) . Negative - Negative POCT U NIT (test code = 3262) . Negative - Negative POCT U PROT (test code = 3259) Trace Negative - Negative POCT U GLU (test code = 3256) Neg Negative - Negative POCT U KETONE (test code = 3258) . Negative - Negative POCT U UROBILI (test code = 3260) . 0.2-1 POCT U BILI (test code = 3261) . Negative - Negative POCT U BLD (test code = 3257) . Negative - Negative POCT U COLOR (test code = 3266) . POCT U APPEAR (test code = 3267) [facility] URINALYSIS W SPECIFIC [id number] 15:39:00 Test Item Value Reference Range Interpretation Comments POCT U SP GRAV (test code = 3255) . 1.005-1.025 POCT PH U (test code = 3254) . 5-8 POCT U LEUK EST (test code = 3263) . Negative - Negative POCT U NIT (test code = 3262) . Negative - Negative POCT U PROT (test code = 3259) Trace Negative - Negative POCT U GLU (test code = 3256) Neg Negative - Negative POCT U KETONE (test code = 3258) . Negative - Negative POCT U UROBILI (test code = 3260) . 0.2-1 POCT U BILI (test code = 3261) . Negative - Negative POCT U BLD (test code = 3257) . Negative - Negative POCT U COLOR (test code = 3266) . POCT U APPEAR (test code = 3267) [facility] URINALYSIS W SPECIFIC [id number] 15:39:00 Test Item Value Reference Range Interpretation Comments POCT U SP GRAV (test code = 3255) . 1.005-1.025 POCT PH U (test code = 3254) . 5-8 POCT U LEUK EST (test code = 3263) . Negative - Negative POCT U NIT (test code = 3262) . Negative - Negative POCT U PROT (test code = 3259) Trace Negative - Negative POCT U GLU (test code = 3256) Neg Negative - Negative POCT U KETONE (test code = 3258) . Negative - Negative POCT U UROBILI (test code = 3260) . 0.2-1 POCT U BILI (test code = 3261) . Negative - Negative POCT U BLD (test code = 3257) . Negative - Negative POCT U COLOR (test code = 3266) . POCT U APPEAR (test code = 3267) [facility] URINALYSIS W SPECIFIC [id number] 16:11:00 Test Item Value Reference Range Interpretation Comments POCT U SP GRAV (test code = * 1.005-1.025 3255) POCT PH U (test code = 3254) * 5-8 POCT U LEUK EST (test code = * Negative - Negative 3263) POCT U NIT (test code = 3262) * Negative - Negative POCT U PROT (test code = 3259) trace Negative - Negative POCT U GLU (test code = 3256) negative Negative - Negative POCT U KETONE (test code = 3258) * Negative - Negative POCT U UROBILI (test code = * 0.2-1 3260) POCT U BILI (test code = 3261) * Negative - Negative POCT U BLD (test code = 3257) * Negative - Negative POCT U COLOR (test code = 3266) * POCT U APPEAR (test code = 3267) [facility] URINALYSIS W SPECIFIC [id number] 18:08:00 Test Item Value Reference Range Interpretation Comments POCT U SP GRAV (test code = 3255) . 1.005-1.025 POCT PH U (test code = 3254) . 5-8 POCT U LEUK EST (test code = 3263) . Negative - Negative POCT U NIT (test code = 3262) . Negative - Negative POCT U PROT (test code = 3259) 1+ Negative - Negative POCT U GLU (test code = 3256) Neg Negative - Negative POCT U KETONE (test code = 3258) . Negative - Negative POCT U UROBILI (test code = 3260) . 0.2-1 POCT U BILI (test code = 3261) . Negative - Negative POCT U BLD (test code = 3257) . Negative - Negative POCT U COLOR (test code = 3266) . [facility] (test code = 3267) .. [facility] [id number] 14:14:00 Test Item Value Reference Range Interpretation Comments POCT U SP GRAV (test code = * 1.005-1.025 3255) POCT PH U (test code = 3254) * 5-8 POCT U LEUK EST (test code = * Negative - Negative 3263) POCT U NIT (test code = 3262) * Negative - Negative POCT U PROT (test code = 3259) negative Negative - Negative POCT U GLU (test code = 3256) negative Negative - Negative POCT U KETONE (test code = 3258) * Negative - Negative POCT U UROBILI (test code = * 0.2-1 3260) POCT U BILI (test code = 3261) * Negative - Negative POCT U BLD (test code = 3257) * Negative - Negative POCT U COLOR (test code = 3266) * POCT U APPEAR (test code = 3267) * [facility]
--- NOTE | 2023-02-15 12:22 | EDPHYS ---
Physician Documentation [facility] Name: Monserrat Tellez Age: 27 yrs Sex: Female : 1995 Arrival Date: 02/15/2023 Time: 12:11 Bed 18 Private MD: ED Physician Matt Brock HPI: 02/15 12:42 This 27 yrs old Black Female presents to ER via EMS with complaints of wrist pain. kb 12:42 The patient or guardian reports pain. The complaints affect the left wrist diffusely. kb Context: resulted from a chronic condition. Onset: The symptoms/episode began/occurred months ago. Modifying factors: The symptoms are alleviated by splinting, the symptoms are aggravated by movement. Associated signs and symptoms: The patient has no apparent associated signs or symptoms. The patient has not experienced similar symptoms in the past. The patient has been recently seen by a physician:. Pt reports she was diagnosed with carpal tunnel one month ago. states the pain is better when she wears the brace she was given, but returns when she takes it off. Denies injury or trauma. Historical: - Allergies: 12:35 No Known Allergies; ko1 - Immunization history:: Adult Immunizations up to date. - Social history:: Smoking status: Patient denies any tobacco usage or history of. ROS: 12:40 Constitutional: Negative for fever, chills, and weight loss. kb 12:40 MS/extremity: Positive for pain, of the left wrist. 12:40 All other systems are negative. Exam: 12:40 Constitutional: This is a well developed, well nourished patient who is awake, alert, kb and in no acute distress. Head/Face: Normocephalic, atraumatic. ENT: Moist Mucous membranes Cardiovascular: Regular rate and rhythm with a normal S1 and S2. No gallops, murmurs, or rubs. No pulse deficits. Respiratory: Respirations even and unlabored. No increased work of breathing. Talking in full sentences Skin: Warm, dry with normal turgor. Normal color. Neuro: Awake and alert, GCS 15, oriented to person, place, time, and situation. Moves all extremities. Normal gait. 12:40 Musculoskeletal/extremity: Extremities: grossly normal except: noted in the left wrist: decreased ROM, pain, tenderness, ROM: limited active range of motion due to pain, Circulation is intact in all extremities. Sensation intact. Vital Signs: 12:33 BP 118 / 74; Pulse 82; Resp 16; Temp 97.8; Pulse Ox 99% ; Weight 75.75 kg; Height 5 ft. ko1 4 in. ; 12:33 Body Mass Index 28.67 (75.75 kg, 162.56 cm) ko1 MDM: 12:15 Patient medically screened. kb 12:41 Differential diagnosis: dislocation, closed fracture, tendonitis, carpal tunnel. Data kb reviewed: vital signs, nurses notes. Counseling: I had a detailed discussion with the patient and/or guardian regarding: the historical points, exam findings, and any diagnostic results supporting the discharge/admit diagnosis, the need for outpatient follow up, a orthopedic surgeon, to return to the emergency department if symptoms worsen or persist or if there are any questions or concerns that arise at home. 12:42 Historians other than the Patient: EMS: [facility]. kb Administered Medications: 12:29 Drug: Ketorolac IM 30 mg Route: IM; Site: right gluteus; ko1 12:29 Drug: Dexamethasone IM 10 mg Route: IM; Site: left gluteus; ko1 Disposition: 02/16 09:58 Co-signature as Attending Physician, Matt Brock MD I reviewed the patient's care rt provided by the Advanced Practice Provider and agree with the diagnosis and treatment plan. Disposition Summary: 02/15/23 12:22 Discharge Ordered Location: Home kb Condition: Stable kb Diagnosis - Pain in left wrist kb Followup: kb - With: Emergency Department - When: As needed - Reason: Worsening of condition Followup: kb - With: Private Physician - When: 2 - 3 days - Reason: Recheck today's complaints, Continuance of care, Re-evaluation by your physician Discharge Instructions: - Discharge Summary Sheet kb - Carpal Tunnel Syndrome, [id number] kb Forms: - Medication Reconciliation Form kb - Thank You Letter kb - Antibiotic Education kb - Prescription Opioid Use kb - Work release form ss Prescriptions: - Prednisone 20 mg Oral Tablet - take 1 tablet by ORAL route once daily for 5 days; 5 tablet; Refills: 0, kb Product Selection Permitted - Diclofenac Sodium 75 mg Oral tablet,delayed release (DR/EC) - take 1 tablet by ORAL route 2 times per day As needed; 30 tablet; Refills: 0, kb Product Selection Permitted Signatures: Yuli Valente, WHIPPER-C WHIPPER-Ckb Vilma Nunn, RN RN ko1 Matt Brock MD MD rt
[2023-02-15] MEDS ORDERED: dexAMETHasone 10 MG/ML VIAL ONE (12:32)
[2023-02-15] MEDS ORDERED: KETOROLAC 30 MG/ML INJ ONE (12:32)
--- NOTE | 2023-02-15 12:34 | ER ---
Nurse's Notes [facility] Name: Monserrat Tellez Age: 27 yrs Sex: Female : 1995 Arrival Date: 02/15/2023 Time: 12:11 Bed 18 Private MD: Diagnosis: Pain in left wrist Presentation: 02/15 12:33 Chief complaint: EMS states: patient called because she was diagnosed with carpal ko1 tunnel in her left wrist last week, pain is getting worse. Coronavirus screen: At this time, the client does not indicate any symptoms associated with coronavirus-19. Ebola Screen: No symptoms or risks identified at this time. Initial Sepsis Screen: Does the patient meet any 2 criteria? No. Patient's initial sepsis screen is negative. Does the patient have a suspected source of infection? No. Patient's initial sepsis screen is negative. Risk Assessment: Do you want to hurt yourself or someone else? Patient reports no desire to harm self or others. Onset of symptoms was February 15, 2023. 12:33 Method Of Arrival: EMS: [facility] ko1 12:33 Acuity: CLAUDIA 4 ko1 Triage Assessment: 12:35 General: Appears in no apparent distress. comfortable, Behavior is calm, cooperative, ko1 appropriate for age. Pain: Complains of pain in left hand. Historical: - Allergies: 12:35 No Known Allergies; ko1 - Immunization history:: Adult Immunizations up to date. - Social history:: Smoking status: Patient denies any tobacco usage or history of. Screenin:20 [facility] ED Fall Risk Assessment (Adult) History of falling in the last 3 months, ko1 including since admission No falls in past 3 months (0 pts) Confusion or Disorientation No (0 pts) Intoxicated or Sedated No (0 pts) Impaired Gait No (0 pts) Mobility Assist Device Used No (0 pt) Altered Elimination No (0 pt) Score/Fall Risk Level 0 - 2 = Low Risk Oriented to surroundings, Maintained a safe environment, Educated pt \T\ family on fall prevention, incl call for assistance when getting out of bed, Assessed \T\ reinforced patient's understanding of fall precautions, Provided non-skid footwear, Hourly rounding (assess needs \T\ fall precautionary measures) done, Used ambulatory aids as needed (educated on \T\ assisted with), Used gait belt as appropriate. Abuse screen: Denies threats or abuse. Denies injuries from another. Nutritional screening: No deficits noted. Tuberculosis screening: No symptoms or risk factors identified. Assessment: 12:20 Neuro: No deficits noted. Cardiovascular: No deficits noted. Respiratory: No deficits ko1 noted. GI: No deficits noted. : No deficits noted. EENT: No deficits noted. Derm: No deficits noted. Musculoskeletal: Reports pain in left hand. Vital Signs: 12:33 BP 118 / 74; Pulse 82; Resp 16; Temp 97.8; Pulse Ox 99% ; Weight 75.75 kg; Height 5 ft. ko1 4 in. ; 12:33 Body Mass Index 28.67 (75.75 kg, 162.56 cm) ko1 ED Course: 12:15 Patient arrived in ED. ko1 12:15 Yuli Valente FNP-C is [facility]. kb 12:15 Matt Brock MD is Attending Physician. kb 12:20 Patient has correct armband on for positive identification. Bed in low position. Call ko1 light in reach. Pulse ox on. NIBP on. 12:21 Vilma Nunn, RN is Primary Nurse. ko1 12:27 No provider procedures requiring assistance completed. Patient did not have IV access ss during this emergency room visit. 12:35 Triage completed. ko1 12:35 Arm band placed on right wrist. Patient placed in an exam room, on a stretcher, on ko1 pulse oximetry, Patient notified of wait time. Administered Medications: 12:29 Drug: Ketorolac IM 30 mg Route: IM; Site: right gluteus; ko1 12:29 Drug: Dexamethasone IM 10 mg Route: IM; Site: left gluteus; ko1 Medication: 12:20 VIS not applicable for this client. ko1 Outcome: 12:22 Discharge ordered by MD. kb 12:27 Discharged to home ambulatory. ss 12:27 Condition: good 12:27 Discharge instructions given to patient, Instructed on discharge instructions, follow up and referral plans. medication usage, Demonstrated understanding of instructions, follow-up care, medications, Prescriptions given X 2. 12:33 Patient left the ED. kj1 Signatures: Yuli Valente FNP-C FNP-Fern Michaels RN RN Anna Valente kj1 Vilma Nnun, RN RN ko1
== END 2023-02-15 12:33 | disposition home or self-care (01) ==
LOC: ER 12:11
DX: M25.532 Pain in left wrist (principal)
CPT/HCPCS: 96372; 99284; J1100

== ENCOUNTER 2025-05-22 17:40 | Emergency (ER) | payer OTHER, SELFPAY ==
--- OUTSIDE RECORDS SUMMARY | 2025-05-22 17:46 | XMS REPORT | Continuity of Care Document ---
Author Name Unknown Address [address] [facility] [address] [place] [address] Organization [facility] Address [address] [facility] [place] [address] Care Team Providers Care Director Of Outpatient Services Name Role Phone Ariane Montejo Primary Care Physician [phone] Visit, Carmelina Nurse Attending Clinician Unava ilable Maria Fernanda Penny Attending Clinician + MARIA FERNANDA BENNETT Attending Clinician Unavail able Doctor Unassigned, [place] Attending Clinician U navailaustyn Lab, Carmelina Attending Clinician Unavailable RENAY PEPPER Attending Clinician Evan rollins Provider, Carmelina Temp Attending Clinician Aniyah vailable Renay Pepper CNM Attending Clinician [phone] ARIAS YIN Attending Clinician UnavailArias Hughes MD Attending Clinician [phone] Colin Dodge MD Attending Clinician [phone] Benoit Murrieta MD Attending Clinician [phone] KARUNA TARANGO Attending Clinician Unavailable EMMA NGUYEN Attending Clinician UnavailJERICA Gonsales Attending Clinician Unavailable Emma Winn Attending Clinician + [phone] Arlene Tierney SPANGLER Attending Clinician [phone] Jada SOLIZP, Jerica Longoria Attending Clinician [phone] DILLAN GONCALVES Attending Clinician DILLAN Mendez Attending Clinician Unavailkarie fitzpatrick Ultrasound, Ang-Mfm Attending Clinician Evan Thakkar MD Rashid Attending Clinician + CHRISTINA SCHWAB Attending Clinician Unav ailable JANICE GUO Attending Clinician JANICE Nguyễn Attending Clinician Julia Ferris MD Attending Clinician [phone] JULIA NEWELL Attending Clinician ARIAS Coreas Admitting Clinician Evan Yin MD, Arias Lucio Admitting Clinician + [phone] Payers Payer Name Policy Type Policy Number Effective Date Expirati on Date Source MEDICAID PENDING PENDING 2021 00:00:00 Problems Condition Name Condition Details Condition Category Status Onset Date Resolution Date Last Treatment Date Treating Clinician Comments Source 39 weeks gestation of 39 weeks gestation of Disease Active 2021-08 00:00: 00 [facility] Obesity (BMI 30-39.9) Obesity (BMI 30-39.9) Disease Active 2021-08 00:00: 00 [facility] Anemia of mother in , antepartum Anemia of mother in , antepartum Disease Active 05-26 00:00: 00 [facility] Non-recurr ent acute serous otitis media of left ear Non-recurr ent acute serous otitis media of left ear Disease Active 05-26 00:00: 00 [facility] Nausea and vomiting during Nausea and vomiting during Disease Active 6- 00:00: 00 [facility] UTI in UTI in Disease Active -13 00:00: 00 Overview: Formattin g of this note might be different from the original. [place] [facility] [place], dx with uti at [facility] Maternal varicella, non-immune Maternal varicella, non-immune Disease Active 30 00:00: 00 Overview: Formattin g of this note might be different from the original. Address in [facility] Supervisio n of high risk , antepartum Supervisio n of high risk , antepartum Disease Active 11-22 00:00: 00 [facility] Primigravi da in second trimester Primigravi da in second trimester Disease Active 11-22 00:00: 00 [facility] History of stomach ulcers History of stomach ulcers Disease Active 11-22 00:00: 00 [facility] Marijuana smoker Marijuana smoker Disease Active 11-22 00:00: 00 [facility] BMI 29.0-29.9, adult BMI 29.0-29.9, adult Disease Active 11-22 00:00: 00 [facility] BMI 29.0-29.9, adult BMI 29.0-29.9, adult Disease Active 11-22 00:00: 00 [facility] Anemia Anemia Disease Active 01-31 00:00: 00 Overview: Formattin g of this note might be different from the original. 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 [facility] Allergies, Adverse Reactions, Alerts Allergy Name Allergy Type Status Severity Reaction(s) Onset Date Inactive Date Treating Clinician Comments Source NO KNOWN ALLERGIE S Drug Class Active [facility] Social History Social Habit Start Date Stop Date Quantity Comments Source ASSERTION 2021-11-01 00:00:00 [facility] History SDOH Alcohol Frequency [facility] History SDOH Alcohol Std Drinks [facility] History SDOH Alcohol Binge [facility] History of tobacco use Smokes tobacco daily [facility] Social function 2023-01-18 00:00:00 2023-01-18 00:00:00 [facility] Exposure to SARS-CoV-2 (event) 2022-08-29 00:00:00 2022-09-08 09:41:00 Not sure [facility] Alcohol intake 2022-06-28 00:00:00 2022-06-28 00:00:00 Ex-drinker (finding) [facility] Tobacco use and exposure 2022-04-03 00:00:00 2022-04-03 00:00:00 Smokeless tobacco non-user [facility] Alcohol Comment 2021-11-22 00:00:00 2021-11-22 00:00:00 stopped for [facility] Sex Assigned At 1995 00:00:00 1995 00:00:00 [facility] Smoking Status Start Date Stop Date Source Smokes tobacco daily 2022-04-03 00:00:00 [facility] Medications Ordered Medication Name Filled Medication Name Start Date Stop Date Current Medication? Ordering Clinician Indication Dosage Frequency Signature (SIG) Comments Components Source Flonase Allergy Relief 50 mcg/actuati on nasal spray,suspe nsion 10-24 00:00: 00 Yes 12mcg/a ctuatio n Johnchen Turner Bromfed DM 2 mg-30 mg-10 mg/5 mL oral syrup 10-24 00:00: 00 Yes 10mg/5 mL John Turner ondansetron 4 mg disintegrat ing tablet 2023-08 00:00: 00 Yes 1mg John Sherrie Turner ibuprofen 800 mg tablet 02-20 00:00: 00 Yes 1mg John Turner TAKE 2 TABS DAILY THE FIRST 5 DAYS, THEN 1 TAB DAILY THE 2ND 5 DAYS, THEN HALF TAB DAILY THE LAST 5 DAYS 02-15 00:00: 00 11-13 00:00 :00 No 20 John Turner TAKE 2 CAPSULES BY MOUTH IN THE MORNING 2021-08 00:00: 00 Yes John Sherrie Turner APPLY TO AREA(S) NEEDED (PERINEUM DISCOMFORT) . 2021-08 00:00: 00 Yes John Turner TAKE 1 TABLET BY MOUTH EVERY 6 (SIX) HOURS NEEDED (PAIN). TAKE WITH FOOD OR MILK. 2021-08 00:00: 00 Yes John Sherrie uTrner ferrous sulfate 325 mg (65 mg iron) tablet 2021-08 00:00: 00 Yes [id number] 325mg Take 1 tablet by mouth every other day. [facility] ibuprofen 600 mg tablet 2021-08 00:00: 00 Yes [id number] 600mg Take 1 tablet by mouth every 6 (six) hours as needed (Pain). Take with food or milk. [facility] benzocaine- menthol, DERMOPLAST, 20-0.5 % topical spray 2021-08 00:00: 00 09-08 00:00 :00 No [id number] Apply to area(s) as needed (Perineum discomfort ). [facility] docusate 100 mg capsule 2021-08 00:00: 00 09-08 00:00 :00 No [id number] 200mg Take 2 capsules by mouth in the morning. [facility] foLIC acid 1 mg tablet 2021-08 00:00: 00 09-08 00:00 :00 No [id number] 1mg Take 1 tablet by mouth in the morning. [facility] foLIC acid (FOLATE) tablet 1 mg 2021-08 15:00: 00 Yes 1mg 1 mg, Oral, DAILY, First dose on Charmaine 07/20/22 at 0900, Until Discontinu ed, Routine [facility] ferrous sulfate tablet 325 mg 2021-08 15:00: 00 Yes 325mg 325 mg, Oral, Q OTHERDAY, First dose on Charmaine 07/20/22 at 0900, Until Discontinu ed, Routine [facility] varicella virus vaccine live (VARIVAX) injection and diluent vial 2021-08 12:09: 24 Yes 1{each} 0.5 mL (1 Each), Subcutaneo us, ONCE-PRIOR TO DISCHARGE, 1 dose, Starting on Charmaine 07/20/22 at 0609, Until Discontinu ed, Routine, Give vaccine prior to discharge [facility] TAKE 1 TABLET BY MOUTH IN THE MORNING 2021-08 00:00: 00 Yes John Turner TAKE 1 TABLET BY MOUTH EVERY 6 HOURS WITH FOOD OR MILK NEEDED FOR PAIN 2021-08 00:00: 00 Yes John dhaliwalcaine- menthol, DERMOPLAST, 20-0.5 % topical spray 2021-08 00:00: 00 Yes [id number] Apply to area(s) as needed (Perineum discomfort ). [facility] ibuprofen 600 mg tablet 2021-08 00:00: 00 Yes [id number] 600mg Take 1 tablet by mouth every 6 (six) hours as needed (Pain). Take with food or milk. [facility] ferrous sulfate 325 mg (65 mg iron) tablet 2021-08 00:00: 00 10-19 05:59 :00 No [id number] 325mg Take 1 tablet by mouth every other day for 90 days. [facility] foLIC acid 1 mg tablet 2021-08 00:00: 00 10-19 05:59 :00 No [id number] 1mg Take 1 tablet by mouth in the morning for 90 days. [facility] docusate 100 mg capsule 2021-08 00:00: 00 10-19 05:59 :00 No [id number] 200mg Take 2 capsules by mouth in the morning for 90 days. [facility] rho(D) immune globulin (RHOGAM) syringe 300 mcg 2021-08 20:20: 55 Yes 300ug 300 mcg, Intramuscu lar, ONCE, For 1 dose, Conditiona l, Routine [facility] ibuprofen (IBU) tablet 600 mg 2021-08 20:20: 52 Yes 600mg 600 mg, Oral, Q6HPRN, Starting on Sun07/19/22 at 1420, Until Discontinu ed, Routine, Pain (scale 4-6) [facility] acetaminoph en (TYLENOL) tablet 650 mg 2021-08 20:20: 52 Yes 650mg 650 mg, Oral, Q6HPRN, Starting on Sun07/19/22 at 1420, Until Discontinu ed, Routine, Pain (scale 1-3) [facility] diphenhydrA MINE (BENADRYL) tablet 25 mg 2021-08 20:20: 52 Yes 25mg 25 mg, Oral, Q6HPRN, Starting on Sun07/19/22 at 1420, Until Discontinu ed, Routine, Sleep, Itching [facility] ondansetron (ZOFRAN (PF)) injection 4 mg 2021-08 20:20: 52 Yes 4mg 4 mg, Slow IV Push, Q8HPRN, Starting on Sun07/19/22 at 1420, Until Discontinu ed, Routine, Nausea and Vomiting (N/V) [facility] simethicone (GAS RELIEF (SIMETHICON E)) chewable tablet 160 mg 2021-08 20:20: 52 Yes 160mg 160 mg, Oral, PC+HSPRN, Starting on Sun07/19/22 at 1420, Until Discontinu ed, Routine, Gas [facility] docusate (COLACE) capsule 200 mg 2021-08 20:20: 52 Yes 200mg 200 mg, Oral, QDAILYPRN, Starting on Sun07/19/22 at 1420, Until Discontinu ed, Routine, Constipati on [facility] magnesium hydroxide (MILK OF MAGNESIA) 400 mg/5 mL suspension 30 mL 2021-08 20:20: 52 Yes 30mL 30 mL, Oral, QDAILYPRN, Starting on Sun07/19/22 at 1420, Until Discontinu ed, Routine, Constipati on [facility] benzocaine- menthol (DERMOPLAST ) 20-0.5 % topical spray 2021-08 20:20: 52 Yes Topical, PRN, Starting on Sun07/19/22 at 1420, Until Discontinu ed, Routine, Perineum discomfort [facility] methylergon ovine (METHERGINE ) injection 0.2 mg 2021-08 19:30: 00 07-19 17:29 :00 No .2mg 0.2 mg, Intramuscu lar, ONCE, 1 dose, On Sun07/19/22 at 1330, Routine [facility] morpHINE (4 mg/mL) injection 4 mg 2021-08 19:30: 00 07-19 17:27 :00 No 4mg 4 mg, Slow IV Push, ONCE, 1 dose, On Sun07/19/22 at 1330, Routine [facility] lactated ringers IV infusion 1,000 mL 2021-08 17:45: 00 07-19 20:27 :00 No 1000mL at 125 mL/hr, 1,000 mL, IV Infusion, ONCE, 1 dose, On Sun07/19/22 at 1145, BERT [facility] ibuprofen (IBU) tablet 600 mg 2021-08 17:23: 48 Yes 600mg 600 mg, Oral, Q6HPRN, Starting on Sun07/19/22 at 1123, Until Discontinu ed, Routine, Pain (scale 1-3) [facility] tobramycin (NEBCIN) 280 mg in NaCl 0.9% (NS) piggyback 2021-08 13:45: 00 07-20 12:07 :25 No 5mg/kg 280 mg (rounded from 289 mg = 5 mg/kg ?57.8 kg Adjusted weight), IV Piggyback, Q24H ABX, 2 doses, First dose on Sun07/19/22 at 0745, Last dose on Sun07/20/22 at 0745, Administer over 30 Minutes, 50 mL
Reas on for Anti-Infec tive: Empiric Therapy for Suspected Infection< br>Empiric Therapy Site: Abdominal< br>Duratio n of therapy: 72 hours [facility] ampicillin (POLYCILLIN -N) 2,000 mg in NaCl 0.9% (NS) 100 mL MINI-BAG 2021-08 13:45: 00 07-20 12:07 :25 No 2g 2,000 mg (2 g), IV Piggyback, Q6H ABX, 8 doses, First dose on Sun07/19/22 at 0745, Last dose on Sun07/21/22 at 0145, Administer over 30 Minutes, 100 mL
Reas on for Anti-Infec tive: Empiric Therapy for Suspected Infection< br>Empiric Therapy Site: Abdominal< br>Duratio n of therapy: 72 hours [facility] acetaminoph en (TYLENOL) tablet 1,000 mg 2021-08 13:30: 00 07-19 12:58 :00 No 1000mg 1,000 mg, Oral, ONCE, 1 dose, On Sun07/19/22 at 0730, Routine [facility] ondansetron (ZOFRAN (PF)) injection 4 mg 2021-08 12:45: 00 07-19 12:06 :00 No 4mg 4 mg, Slow IV Push, ONCE, On Sun07/19/22 at 0645, For 1 dose
Do ses of ondansetro n 16 mg and above need to be administer ed via IV piggyback. For Dose >=24mg ECG monitoring is advisable.
[facility] oxytocin (PITOCIN) 30 units in NS 500 mL IV infusion 2021-08 06:27: 52 Yes 2mU/min at 2-40 mL/hr, IV Infusion, TITRATE, Starting on Sun07/19/22 at 0027, Until Discontinu ed, BERT [facility] ropivacaine 0.2 % (NAROPIN (PF)) epidural infusion 2021-08 05:07: 00 07-19 19:07 :11 No Epidural, CONTINUOUS PRN, Starting on Sun07/18/22 at 2307, Until Sun07/19/22 at 1307, Routine, Intra-op [facility] lidocaine-e pinephrine (XYLOCAINE W/EPINEPHRI NE) 1.5 %-1:200,000 injection 2021-08 05:06: 00 07-19 19:07 :11 No Intraderma l, ONCE INTRA PROCEDURE, Starting on Sun07/18/22 at 2306, Until Sun07/19/22 at 1307, Routine, Intra-op [facility] lidocaine 2% (XYLOCAINE) 20 mg/mL (2 %) injection 2021-08 04:44: 00 07-19 19:07 :11 No Intravenou s, ONCE INTRA PROCEDURE, Starting on Sun07/18/22 at 2244, Until Sun07/19/22 at 1307, Routine, Intra-op [facility] sodium citrate-cit kennedy acid (BICITRA) 500-334 mg/5 mL solution 30 mL 2021-08 04:36: 25 Yes 30mL 30 mL, Oral, PRE-PROCED URE ONCE, 1 dose, Starting on Sun07/18/22 at 2236, Until Discontinu ed, Routine, Surgery/Pr ocedure [facility] lactated ringers IV infusion 500 mL 2021-08 04:36: 25 07-19 07:37 :56 No 500mL at 999 mL/hr, 500 mL, IV Infusion, PRN - SEE INSTRUCTIO NS, 1 dose, Starting on Sun07/18/22 at 2236, Until Sun07/19/22 at 0137, Routine [facility] nalbuphine (NUBAIN) injection 10 mg 2021-08 16:00: 00 07-18 15:24 :00 No 10mg 10 mg, Intravenou s, ONCE, 1 dose, On Sun07/18/22 at 1000, Routine [facility] sodium citrate-cit kennedy acid (BICITRA) 500-334 mg/5 mL solution 30 mL 2021-08 13:38: 22 Yes 30mL 30 mL, Oral, PRE-PROCED URE ONCE, 1 dose, Starting on Sun07/18/22 at 0738, Until Discontinu ed, Routine, Surgery/Pr ocedure [facility] lidocaine 1% (XYLOCAINE) 10 mg/mL (1 %) injection 50 mL 2021-08 13:38: 22 Yes 50mL 50 mL, Infiltrati on, PRN - SEE INSTRUCTIO NS, Starting on Sun07/18/22 at 0738, Until Discontinu ed, Routine, Local anesthesia , For laceration repair only as a local anesthetic as indicated. [facility] lidocaine 1% (PF) (XYLOCAINE) injection 0.3 mL 2021-08 13:38: 22 Yes .3mL 0.3 mL, Infiltrati on, PRN - SEE INSTRUCTIO NS, Starting on Sun07/18/22 at 0738, Until Discontinu ed, Routine, Local anesthesia , For IV line placement only as a local anesthetic . [facility] lactated ringers IV infusion 500 mL 2021-08 13:38: 22 Yes 500mL at 999 mL/hr, 500 mL, IV Infusion, PRN - SEE INSTRUCTIO NS, Starting on Sun07/18/22 at 0738, Until Discontinu ed, Routine [facility] D5W-LR IV infusion 1,000 mL 2021-08 13:38: 22 Yes 1000mL at 1-125 mL/hr, IV Infusion, TITRATE, Starting on Sun07/18/22 at 0738, Until Discontinu ed, Routine [facility] vit 33-iron-fol ic-dha (SELECT-OB + DHA) 29 mg iron-1 mg -250 mg combo pack 2021-08 00:00: 00 07-20 00:00 :00 No [id number] 1{packe t} Take 1 Packet by mouth in the morning. [facility] TAKE 1 TABLET BY MOUTH EVERY DAY IN THE MORNING 05-26 00:00: 00 Yes John Turner TAKE 1 TABLET BY MOUTH IN THE MORNING AND 1 TABLET AT NOON AND 1 TABLET IN THE EVENING. 05-26 00:00: 00 Yes John Turner ferrous sulfate (IRON, FERROUS SULFATE,) 325 mg (65 mg iron) tablet 05-26 00:00: 00 07-20 00:00 :00 No [id number] 325mg Take 1 tablet by mouth in the morning. [facility] ascorbic acid, vitamin C, 500 mg tablet 05-26 00:00: 00 07-20 00:00 :00 No [id number] 500mg Take 1 tablet by mouth in the morning and 1 tablet at noon and 1 tablet in the evening. [facility] TAKE 1 CAPSULE IN THE MORNING AND EVENING DO ALL THIS FOR 10 DAYS 05-08 00:00: 00 Yes John Turner amoxicillin 500 mg tablet 05-08 00:00: 00 05-19 04:59 :00 No [id number] 500mg Take 1 tablet by mouth in the morning and 1 tablet in the evening. Do all this for 10 days. [facility] proMETHazin e 25 mg tablet 4-13 00:00: 00 07-20 00:00 :00 No [id number] 25mg Take 1 tablet by mouth every 6 (six) hours as needed for Nausea and Vomiting (N/V). [facility] vit 33-iron-fol ic-dha (SELECT-OB + DHA) 29 mg iron-1 mg -250 mg combo pack 3-30 00:00: 00 07-03 00:00 :00 No [id number] 1{packe t} Take 1 Packet by mouth daily. [facility] Immunizations Ordered Immunization Name Filled Immunization Name Date Status Comments Source HPV9 2023-01-18 00:00:00 Completed [facility] HPV9 2022-09-08 00:00:00 Completed [facility] HPV9 2022-09-08 00:00:00 Completed [facility] HPV9 2022-09-08 00:00:00 Completed [facility] HPV9 2022-09-08 00:00:00 Completed [facility] HPV9 2022-09-08 00:00:00 Completed [facility] HPV9 2022-07-20 00:00:00 Completed [facility] HPV9 2022-07-20 00:00:00 Completed [facility] HPV9 2022-07-20 00:00:00 Completed [facility] HPV9 2022-07-20 00:00:00 Completed [facility] HPV9 2022-07-20 00:00:00 Completed [facility] HPV9 2022-07-20 00:00:00 Completed [facility] HPV9 2022-07-20 00:00:00 Completed [facility] HPV9 2022-07-20 00:00:00 Completed [facility] HPV9 2022-07-20 00:00:00 Completed [facility] TDAP 2022-06-29 00:00:00 Completed [facility] TDAP 2022-05-08 00:00:00 Completed [facility] TDAP 2022-05-08 00:00:00 Completed [facility] TDAP 2022-05-08 00:00:00 Completed [facility] TDAP 2022-05-08 00:00:00 Completed [facility] TDAP 2022-05-08 00:00:00 Completed [facility] TDAP 2022-05-08 00:00:00 Completed [facility] TDAP 2022-05-08 00:00:00 Completed [facility] TDAP 2022-05-08 00:00:00 Completed [facility] TDAP 2022-05-08 00:00:00 Completed [facility] TDAP 2022-05-08 00:00:00 Completed [facility] TDAP 2022-05-08 00:00:00 Completed [facility] TDAP 2022-05-08 00:00:00 Completed [facility] TDAP 2022-05-08 00:00:00 Completed [facility] TDAP 2022-05-08 00:00:00 Completed [facility] TDAP 2022-05-08 00:00:00 Completed [facility] TDAP 2022-05-08 00:00:00 Completed [facility] TDAP 2022-05-08 00:00:00 Completed [facility] TDAP 2022-05-08 00:00:00 Completed [facility] TDAP 2022-05-08 00:00:00 Completed [facility] TDAP 2022-05-08 00:00:00 Completed [facility] TDAP 2009-08-27 00:00:00 Completed [facility] TDAP 2009-08-27 00:00:00 Completed [facility] TDAP 2009-08-27 00:00:00 Completed [facility] TDAP 2009-08-27 00:00:00 Completed [facility] TDAP 2009-08-27 00:00:00 Completed [facility] TDAP 2009-08-27 00:00:00 Completed [facility] TDAP 2009-08-27 00:00:00 Completed [facility] TDAP 2009-08-27 00:00:00 Completed [facility] TDAP 2009-08-27 00:00:00 Completed [facility] TDAP 2009-08-27 00:00:00 Completed [facility] TDAP 2009-08-27 00:00:00 Completed [facility] TDAP 2009-08-27 00:00:00 Completed [facility] TDAP 2009-08-27 00:00:00 Completed [facility] TDAP 2009-08-27 00:00:00 Completed [facility] TDAP 2009-08-27 00:00:00 Completed [facility] TDAP 2009-08-27 00:00:00 Completed [facility] TDAP 2009-08-27 00:00:00 Completed [facility] TDAP 2009-08-27 00:00:00 Completed [facility] TDAP 2009-08-27 00:00:00 Completed [facility] TDAP 2009-08-27 00:00:00 Completed [facility] Vital Signs Vital Name Observation Time Observation Value Comments S ource Body temperature 2023-01-18 14:25:00 36.56 Michelle [facility] Respiratory rate 2023-01-18 14:25:00 20 /min [facility] Body weight 2023-01-18 14:25:00 72.938 kg [facility] BMI 2023-01-18 14:25:00 31.40 kg/m2 [facility] Systolic blood pressure 2022-09-08 15:48:00 109 mm[Hg] [facility] Diastolic blood pressure 2022-09-08 15:48:00 62 mm[Hg] [facility] Heart rate 2022-09-08 15:48:00 65 /min [facility] Respiratory rate 2022-09-08 15:48:00 18 /min [facility] Body weight 2022-09-08 15:48:00 71.532 kg [facility] BMI 2022-09-08 15:48:00 30.80 kg/m2 [facility] Systolic blood pressure 2022-08-09 21:17:00 105 mm[Hg] [facility] Diastolic blood pressure 2022-08-09 21:17:00 77 mm[Hg] [facility] Heart rate 2022-08-09 21:17:00 88 /min [facility] Body temperature 2022-08-09 21:17:00 36.06 Michelle [facility] Respiratory rate 2022-08-09 21:17:00 17 /min [facility] Body height 2022-08-09 21:17:00 152.4 cm [facility] Body weight 2022-08-09 21:17:00 70.943 kg [facility] BMI 2022-08-09 21:17:00 30.54 kg/m2 [facility] Systolic blood pressure 2022-07-27 14:45:00 137 mm[Hg] [facility] Diastolic blood pressure 2022-07-27 14:45:00 84 mm[Hg] [facility] Heart rate 2022-07-27 14:45:00 82 /min [facility] Body temperature 2022-07-27 14:45:00 36.61 Michelle [facility] Respiratory rate 2022-07-27 14:45:00 18 /min [facility] Body height 2022-07-27 14:45:00 152.4 cm [facility] Body weight 2022-07-27 14:45:00 76.289 kg [facility] BMI 2022-07-27 14:45:00 32.85 kg/m2 [facility] Systolic blood pressure 2022-07-20 22:50:00 99 mm[Hg] [facility] Diastolic blood pressure 2022-07-20 22:50:00 63 mm[Hg] [facility] Heart rate 2022-07-20 22:50:00 92 /min [facility] Body temperature 2022-07-20 22:50:00 36.61 Michelle [facility] Respiratory rate 2022-07-20 22:50:00 17 /min [facility] Oxygen saturation in Arterial blood by Pulse oximetry 2022-07-20 22:50:00 100 /min [facility] Body height 2022-07-18 13:43:00 152.4 cm [facility] Body weight 2022-07-18 13:43:00 76.3 kg [facility] BMI 2022-07-18 13:43:00 32.85 kg/m2 [facility] Systolic blood pressure 2022-07-13 17:06:00 121 mm[Hg] [facility] Diastolic blood pressure 2022-07-13 17:06:00 52 mm[Hg] [facility] Heart rate 2022-07-13 17:06:00 90 /min [facility] Body temperature 2022-07-13 17:06:00 36.06 Michelle [facility] Respiratory rate 2022-07-13 17:06:00 18 /min [facility] Body weight 2022-07-13 17:06:00 76.295 [facility] BMI 2022-07-13 17:06:00 32.85 kg/m2 [facility] Systolic blood pressure 2022-07-05 16:01:00 112 mm[Hg] [facility] Diastolic blood pressure 2022-07-05 16:01:00 66 mm[Hg] [facility] Heart rate 2022-07-05 16:01:00 93 /min [facility] Body temperature 2022-07-05 16:01:00 36.44 Michelle [facility] Respiratory rate 2022-07-05 16:01:00 16 /min [facility] Body height 2022-07-05 16:01:00 152.4 cm [facility] Body weight 2022-07-05 16:01:00 73.936 kg [facility] BMI 2022-07-05 16:01:00 31.83 kg/m2 [facility] Systolic blood pressure 2022-06-28 15:49:00 111 mm[Hg] [facility] Diastolic blood pressure 2022-06-28 15:49:00 71 mm[Hg] [facility] Heart rate 2022-06-28 15:49:00 87 /min [facility] Body temperature 2022-06-28 15:49:00 36 Michelle [facility] Respiratory rate 2022-06-28 15:49:00 18 /min [facility] Body height 2022-06-28 15:49:00 152.4 cm [facility] Body weight 2022-06-28 15:49:00 73.738 kg [facility] BMI 2022-06-28 15:49:00 31.75 kg/m2 [facility] Systolic blood pressure 2022-06-21 15:37:00 126 mm[Hg] [facility] Diastolic blood pressure 2022-06-21 15:37:00 77 mm[Hg] [facility] Heart rate 2022-06-21 15:37:00 99 /min [facility] Body temperature 2022-06-21 15:37:00 36.22 Michelle [facility] Respiratory rate 2022-06-21 15:37:00 18 /min [facility] Body height 2022-06-21 15:37:00 152.4 cm [facility] Body weight 2022-06-21 15:37:00 74.844 kg [facility] BMI 2022-06-21 15:37:00 32.22 kg/m2 [facility] Systolic blood pressure 2022-06-08 16:05:00 117 mm[Hg] [facility] Diastolic blood pressure 2022-06-08 16:05:00 72 mm[Hg] [facility] Heart rate 2022-06-08 16:05:00 93 /min [facility] Body temperature 2022-06-08 16:05:00 35.72 Michelle [facility] Respiratory rate 2022-06-08 16:05:00 18 /min [facility] Body weight 2022-06-08 16:05:00 72.077 kg [facility] BMI 2022-06-08 16:05:00 31.03 kg/m2 [facility] Systolic blood pressure 2022-05-26 18:07:00 92 mm[Hg] [facility] Diastolic blood pressure 2022-05-26 18:07:00 66 mm[Hg] [facility] Heart rate 2022-05-26 18:07:00 92 /min [facility] Body temperature 2022-05-26 18:07:00 36.22 Michelle [facility] Respiratory rate 2022-05-26 18:07:00 18 /min [facility] Body height 2022-05-26 18:07:00 152.4 cm [facility] Body weight 2022-05-26 18:07:00 68.692 kg [facility] BMI 2022-05-26 18:07:00 29.58 kg/m2 [facility] Systolic blood pressure 2022-05-08 14:01:00 120 mm[Hg] [facility] Diastolic blood pressure 2022-05-08 14:01:00 68 mm[Hg] [place] [facility] Heart rate 2022-05-08 14:01:00 92 /min [facility] Body temperature 2022-05-08 14:01:00 36.17 Michelle [facility] Respiratory rate 2022-05-08 14:01:00 18 /min [facility] Body weight 2022-05-08 14:01:00 68.312 kg [facility] BMI 2022-05-08 14:01:00 29.41 kg/m2 [facility] BP Systolic 2024-10-24 08:27:00 129 mm[Hg] Step hen F Johnny BP Diastolic 2024-10-24 08:27:00 82 mm[Hg] Román phen F Johnny Weight Measured 2024-10-24 08:27:00 154.80 pounds John F Johnny Height Measured 2024-10-24 08:27:00 60.00 inches John F [facility] Body Temperature 2024-10-24 08:27:00 97.40 degrees John F [facility] Heart Rate 2024-10-24 08:27:00 87.00 /min Sharon en F Johnny Respiratory Rate 2024-10-24 08:27:00 19.00 /min John F [facility] BP Systolic 2024-07-02 15:25:00 125 mm[Hg] Step hen F [facility] BP Diastolic 2024-07-02 15:25:00 86 mm[Hg] Román phen F Johnny Weight Measured 2024-07-02 15:25:00 149.40 pounds John F Johnny Height Measured 2024-07-02 15:25:00 60.00 inches John F Johnny Body Temperature 2024-07-02 15:25:00 98.20 degrees John F Johnny Heart Rate 2024-07-02 15:25:00 96.00 /min Sharon en F Johnny Respiratory Rate 2024-07-02 15:25:00 19.00 /min John F Johnny Body Temperature 2024-02-21 14:12:00 97.60 degrees John F Johnny Heart Rate 2024-02-21 14:12:00 81.00 /min Sharon en F Johnny Respiratory Rate 2024-02-21 14:12:00 18.00 /min John F Johnny BP Systolic 2024-02-21 14:12:00 121 mm[Hg] Step hen F Johnny BP Diastolic 2024-02-21 14:12:00 81 mm[Hg] Román phen F Johnny Weight Measured 2024-02-21 14:12:00 157.00 pounds John F Johnny Height Measured 2024-02-21 14:12:00 60.00 inches John F Johnny BP Systolic 2023-02-15 15:13:00 115 mm[Hg] Step hen F [facility] BP Diastolic 2023-02-15 15:13:00 76 mm[Hg] Román phen F Johnny Weight Measured 2023-02-15 15:13:00 155.80 pounds John F Johnny Height Measured 2023-02-15 15:13:00 60.00 inches John F Johnny Body Temperature 2023-02-15 15:13:00 98.20 degrees John F Johnny Heart Rate 2023-02-15 15:13:00 99.00 /min Sharon en F Johnny Respiratory Rate 2023-02-15 15:13:00 18.00 /min John F Johnny BP Systolic 2023-01-18 14:37:00 121 mm[Hg] Step hen F Johnny BP Diastolic 2023-01-18 14:37:00 80 mm[Hg] Román phen F Johnny Weight Measured 2023-01-18 14:37:00 160.20 pounds John F Johnny Height Measured 2023-01-18 14:37:00 60.00 inches John F Johnny Body Temperature 2023-01-18 14:37:00 98.10 degrees John Sherrie Johnny Heart Rate 2023-01-18 14:37:00 74.00 /min Sharon Turner Respiratory Rate 2023-01-18 14:37:00 18.00 /min John Balderas Johnny Procedures Procedure Date / Time Performed Performing Clinician Source GARDASIL 9 (HPV 9V) VACCINE 2023-01-18 14:30:03 Maria Fernanda Bennett [facility] NOTICE OF RESEARCH PARTICIPATION 2023-01-17 05:01:00 Doctor Unassigned, [place] [facility] GARDASIL 9 (HPV 9V) VACCINE 2022-09-08 16:14:06 Renay Pepper [facility] PATIENT CORRESPONDENCE (LETTERS, USPS DOCUMENTATION) 2022-09-08 06:01:00 Doctor Unassigned, [place] [facility] CBC WITH DIFF 2022-07-20 11:25:[address] [facility] VENOUS CORD GAS 2022-07-19 17:31:00 Zeb Silva [facility] CENTRAL NEURAXIAL BLOCK 2022-07-19 04:45:16 Andreas Dodge [facility] CBC WITH DIFF 2022-07-18 14:37:00 Zeb Silva [facility] HEPATITIS B SURFACE ANTIGEN 2022-07-18 14:37:00 Gloria Silva [facility] HIV 1/2 AG-AB WITH REFLEX 2022-07-18 14:37:00 Ho Gloria nowak [facility] GALV ONLY - SYPHILIS IGG/IGM 2022-07-18 14:37:00 Gloria Silva [facility] HB ABO GROUPING 2022-07-18 14:02:00 Zeb Silva [facility] RHO (D) IMMUNE GLOBULIN 2022-07-18 14:02:00 Michael Chow [facility] POCT URINALYSIS 2022-07-13 17:10:00 Emma Nguyen [facility] POCT URINALYSIS 2022-07-05 00:00:00 Emma Nguyen [facility] CBC WITH DIFF 2022-06-28 16:26:00 Maria Fernanda Bennett [facility] POCT URINALYSIS 2022-06-28 15:50:00 Emma Nguyen [facility] REFERRAL- REQUEST/RESPONSE 2022-06-28 05:01:00 Doctor Unassigned, [place] [facility] POCT URINALYSIS 2022-06-21 15:39:00 Emma Nguyen [facility] POCT URINALYSIS 2022-06-08 16:11:00 Emma Nguyen [facility] POCT URINALYSIS 2022-05-26 18:08:00 Emma Nguyen [facility] POCT URINALYSIS 2022-05-08 14:14:00 Emma Nguyen [facility] TDAP VACCINE, >11 YRS, IM 2022-05-08 14:00:20 Emma Nguyen [facility] Encounters Start Date/Time End Date/Time Encounter Type Admission Type Attending [facility] Care Department Encounter ID Source 2024-10-24 08:19:28 2024-10-24 08:19:28 Outpatient SFA [facility] [id number] John Balderas Johnny 2024-10-24 00:00:00 2024-10-24 00:00:00 Outpatient Visit [facility] [id number] John Balderas Johnny 2024-07-02 15:17:05 2024-07-02 15:17:05 Outpatient SFA S[facility] [id number] John Balderas Johnny 2024-07-02 00:00:00 2024-07-02 00:00:00 Outpatient Visit [facility] [id number] John Balderas Johnny 2024-05-02 00:00:00 2024-05-02 00:00:00 Outpatient Visit SFA S[facility] [id number] John Balderas Johnny 2024-02-21 14:11:34 2024-02-21 14:11:34 Outpatient SFA [facility] [id number] John Turner 2024-02-21 00:00:00 2024-02-21 00:00:00 Outpatient Visit [facility] [id number] John Turner 2023-02-15 15:07:16 2023-02-15 15:07:16 Outpatient S[facility] [id number] John Turner 2023-01-18 14:31:14 2023-01-18 14:31:14 Outpatient [facility] [id number] John Balderas Johnny 2023-01-18 09:30:00 2023-01-18 09:45:00 Nurse Visit Visit, Maria Fernanda Skelton [facility] 1.840.114 350.1.13.10 4.2.7.2.686 [id number] [facility] 2023-01-18 09:30:00 2023-01-18 09:30:00 Outpatient MARIA FERNANDA MILLS [facility] [id number] [facility] 2023-01-17 00:00:00 2023-01-17 00:00:00 Orders Only Doctor Unassigned, [place] [facility] 1..114 350.1.13.10 4.2.7.2.686 [id number] [facility] 2022-09-12 10:15:00 2022-09-12 11:09:49 [place] Visit Lab, Maria Fernanda Parada [facility] CHILD [facility] 1..114 350.1.13.10 4.2.7.2.686 [id number] [facility] 2022-09-12 10:15:00 2022-09-12 10:15:00 Outpatient MARIA FERNANDA MILLS [facility] [id number] [facility] 2022-09-12 09:45:00 2022-09-12 09:45:00 Outpatient R [facility] [id number] [facility] 2022-09-08 09:15:00 2022-09-08 10:21:05 Outpatient RENAY STEVENSON [facility] [id number] [facility] 2022-09-08 09:15:00 2022-09-08 10:21:05 Office Visit Provider, Renay Mayo [facility] 1..840.114 350.1.13.10 4.2.7.2.686 [id number] [facility] 2022-09-08 00:00:00 2022-09-08 00:00:00 Orders Only Doctor Unassigned, [place] [facility] 1..840.114 350.1.13.10 4.2.7.2.686 [id number] [facility] 2022-08-09 15:15:00 2022-08-09 16:02:57 Outpatient RENAY STEVENSON [facility] [id number] [facility] 2022-08-09 15:15:00 2022-08-09 16:02:57 Routine Visit Provider, Renay Mayo [facility] 1..840.114 350.1.13.10 4.2.7.2.686 [id number] [facility] 2022-07-27 08:30:00 2022-07-27 10:32:53 Outpatient RENAY STEVENSON [facility] [id number] [facility] 2022-07-27 08:30:00 2022-07-27 10:32:53 Routine Visit Provider, Renay Mayo A [facility] 1.840.114 350.1.13.10 4.2.7.2.686 [id number] [facility] 2022-07-21 00:00:00 2022-07-21 00:00:00 Telephone Maria Fernanda Bennett [facility] CHILD [facility] 1.840.114 350.1.13.10 4.2.7.2.686 [id number] [facility] 2022-07-18 07:11:00 2022-07-20 17:19:00 Inpatient P ARIAS YIN [facility] [id number] [facility] 2022-07-18 07:11:00 2022-07-20 17:19:00 Hospital Encounter Arias Yin [facility] 1.0.114 350.1.13.10 4.2.7.2.686 [id number] [facility] 2022-07-18 22:44:00 2022-07-19 13:07:00 Anesthesia Event Colin Dodge, Benoit [facility] 1..84.114 350.1.13.10 4.2.7.2.686 [id number] [facility] 2022-07-13 11:00:00 2022-07-13 11:24:17 Outpatient R MARIA FERNANDA BENNETT [facility] [id number] [facility] 2022-07-13 11:00:00 2022-07-13 11:24:17 Routine Visit Maria Fernanda Bennett [facility] 1..840.114 350.1.13.10 4.2.7.2.686 [id number] [facility] 2022-07-12 00:00:2022-07-12 00:00:00 Telephone Maria Fernanda Bennett [facility] MATERNAL & CHILD [facility] 1.2.840.114 350.1.13.10 4.2.7.2.686 [id number] [facility] 2022-07-05 09:45:00 2022-07-05 10:18:22 Outpatient R BETSEYJOVANYHUANGPHYLLISMARIA FERNANDA [facility] [id number] [facility] 2022-07-05 09:45:00 2022-07-05 10:18:22 Routine Visit BetseyjovanyhuangMaria Fernanda GAHERIBERTO [facility] 1.2.840.114 350.1.13.10 4.2.7.2.686 [id number] [facility] 2022-06-30 00:00:00 2022-06-30 00:00:00 Telephone Maria Fernanda Bennett [facility] 1.2.840.114 350.1.13.10 4.2.7.2.686 [id number] [facility] 2022-06-29 00:00:00 2022-06-29 00:00:00 Patient Secure Msg Maria Fernanda Bennett [facility] 1.2.840.114 350.1.13.10 4.2.7.2.686 [id number] [facility] 2022-06-28 10:45:00 2022-06-28 11:27:27 Outpatient R BETSEYJOVANYHUANGPHYLLISMARIA FERNANDA [facility] [id number] [facility] 2022-06-28 10:45:00 2022-06-28 11:27:27 Routine Visit SabrinaMaria Fernanda Von G[facility]ERT[facility] 1.2.840.114 350.1.13.10 4.2.7.2.686 [id number] [facility] 2022-06-28 00:00:00 2022-06-28 00:00:00 Orders Only Doctor Unassigned, [place] [facility] 1..840.114 350.1.13.10 4.2.7.2.686 [id number] [facility] 2022-06-21 10:30:00 2022-06-21 10:56:10 Outpatient R MARIA FERNANDA BENNETT [facility] [id number] [facility] 2022-06-21 10:30:00 2022-06-21 10:56:10 Routine Visit Maria Fernanda Bennett [facility] MATERNAL & CHILD [facility] 1..840.114 350.1.13.10 4.2.7.2.686 [id number] [facility] 2022-06-21 10:00:00 2022-06-21 10:00:00 Outpatient EMMA ELIAS [facility] [id number] [facility] 2022-06-08 11:00:00 2022-06-08 12:00:34 Outpatient JERICA LAMBERT [facility] [id number] [facility] 2022-06-08 11:00:00 2022-06-08 12:00:34 Routine Visit Provider, Guy-Rmchp Emma Alford Cindy Kay Moff, Kathryn [facility] MATERNAL & CHILD [facility] 1..840.114 350.1.13.10 4.2.7.2.686 [id number] [facility] 2022-05-26 12:45:00 2022-05-26 13:23:33 Outpatient DILLAN GUILLEN SARAH [facility] [id number] [facility] 2022-05-26 12:45:00 2022-05-26 13:23:33 Routine Visit Provider, Dillan Yi [facility] MATERNAL & CHILD [facility] 1..840.114 350.1.13.10 4.2.7.2.686 [id number] [facility] 2022-05-22 09:45:00 2022-05-22 09:45:00 Outpatient EMMA ELIAS [facility] [id number] [facility] 2022-05-08 08:45:00 2022-05-08 09:37:09 Outpatient R EMMA NGUYEN [facility] [id number] [facility] 2022-05-08 08:45:00 2022-05-08 09:37:09 Routine Visit Emma Nguyen [facility] MATERNAL & CHILD [facility] ..840.114 350.1.13.10 4.2.7.2.686 [id number] [facility] 2022-05-08 08:45:00 2022-05-08 08:45:00 Outpatient EMMA ELIAS [facility] [id number] [facility] 2022-04-18 00:00:00 2022-04-18 00:00:00 Telephone Emma Nguyen [facility] MATERNAL & CHILD [facility] ..840.114 350.1.13.10 4.2.7.2.686 [id number] [facility] 2022-04-17 08:00:00 2022-04-17 09:08:41 Outpatient EMMA ELIAS [facility] [id number] [facility] 2022-04-17 08:00:00 2022-04-17 09:08:41 Routine Visit Emma Nguyen [facility] MATERNAL & CHILD [facility] 1..840.114 350.1.13.10 4.2.7.2.686 [id number] [facility] 2022-04-03 13:00:00 2022-04-03 13:35:24 Outpatient R NGUYEN, ROSMARLA [facility] [id number] [facility] 2022-04-03 13:00:00 2022-04-03 13:35:24 Routine Visit Emma Nguyen [facility] 1.2.840.114 350.1.13.10 4.2.7.2.686 [id number] [facility] 2022-03-13 00:00:00 2022-03-13 00:00:00 Abstract Emma Nguyen [facility] 1.2.840.114 350.1.13.10 4.2.7.2.686 [id number] [facility] 2022-03-08 14:15:00 2022-03-08 15:07:00 [place] Visit Ultrasound, [facility] T[facility] 1.2.840.114 350.1.13.10 4.2.7.2.686 [id number] [facility] 2022-03-08 14:15:00 2022-03-08 14:15:00 Outpatient P CHRISTINA MELARA [facility] [id number] [facility] 2022-03-06 14:30:00 2022-03-06 14:53:30 Outpatient JANICE CONTEH EMILY [facility] [id number] [facility] 2022-03-06 14:30:00 2022-03-06 14:53:30 Outpatient R JANICE GUO EMILY [facility] [id number] [facility] 2022-03-06 14:30:00 2022-03-06 14:53:30 Routine Visit Provider, Janice Martinez [facility] MATERNAL & CHILD [facility] 1.2.840.114 350.1.13.10 4.2.7.2.686 [id number] [facility] 2022-02-08 00:00:00 2022-02-08 00:00:00 Telephone Emma Nguyen [facility] MATERNAL & CHILD [facility] 1.2.840.114 350.1.13.10 4.2.7.2.686 [id number] [facility] 2022-02-07 00:00:00 2022-02-07 00:00:00 Telephone Emma Nguyen [facility] CHILD [facility] 1.2.840.114 350.1.13.10 4.2.7.2.686 [id number] [facility] 2022-02-06 10:45:00 2022-02-06 13:32:31 Outpatient R EMMA NGUYEN [facility] [id number] [facility] 2022-02-06 10:45:00 2022-02-06 13:32:31 Routine Visit Emma Nguyen [facility] 1.2.840.114 350.1.13.10 4.2.7.2.686 [id number] [facility] 2022-01-09 13:00:00 2022-01-09 13:00:00 Routine Visit Emma Nguyen [facility] 1.2.840.114 350.1.13.10 4.2.7.2.686 [id number] [facility] 2022-01-09 13:00:00 2022-01-09 11:58:36 Outpatient R NGUYEN, EMMA [facility] [id number] [facility] 2022-01-09 11:30:00 2022-01-09 11:48:59 [place] Visit Ultrasound, Julia Pereira [facility] MATERNAL & CHILD [facility] 1..840.114 350.1.13.10 4.2.7.2.686 [id number] [facility] 2022-01-09 11:30:00 2022-01-09 11:48:59 Outpatient R JULIA NEWELL [facility] [id number] [facility] 2022-01-09 00:00:00 2022-01-09 00:00:00 Abstract Emma Nguyen [facility] MATERNAL & CHILD [facility] 1.840.114 350.1.13.10 4.2.7.2.686 [id number] [facility] 2021-12-20 13:45:00 2021-12-20 14:42:59 Outpatient EMMA ELIAS [facility] [id number] [facility] 2021-12-20 13:45:00 2021-12-20 14:42:59 Routine Visit Emma Nguyen [facility] & [facility]ILD [facility] ..840.114 350.1.13.10 4.2.7.2.686 [id number] [facility] 2021-12-20 13:45:00 2021-12-20 13:45:00 Outpatient EMMA ELIAS [facility] [id number] [facility] 2021-12-07 15:30:00 2021-12-07 15:45:00 Routine Visit Maria Fernanda Bennett [facility] & [facility]ILD [facility] 1..840.114 350.1.13.10 4.2.7.2.686 [id number] [facility] 2021-12-07 15:30:00 2021-12-07 15:30:00 Outpatient R MARIA FERNANDA BENNETT [facility] [id number] [facility] 2021-12-07 00:00:00 2021-12-07 00:00:00 Orders Only Doctor Unassigned, [place] [facility] 1..114 350.1.13.10 4.2.7.2.686 [id number] [facility] 2021-11-24 07:45:00 2021-11-24 08:13:41 [place] [facility] Emma Nguyen [facility] MATERNAL & CHILD [facility] 1.840.114 350.1.13.10 4.2.7.2.686 [id number] [facility] 2021-11-24 07:45:00 2021-11-24 08:13:41 Outpatient R EMMA NGUYEN [facility] [id number] [facility] 2021-11-24 07:45:00 2021-11-24 07:45:00 Outpatient R EMMA NGUYEN [facility] [id number] [facility] 2021-11-23 00:00:00 2021-11-23 00:00:00 Telephone Emma Nguyen [facility] [facility] .840.114 [id number] 107 [id number] [facility] 2021-11-23 00:00:00 2021-11-23 00:00:00 Telephone Emma Nguyen [facility] .840.114 [id number] [facility] 2021-11-22 14:00:00 2021-11-22 15:25:18 Outpatient R EMMA NGUYEN [facility] [id number] [facility] 2021-11-22 14:00:00 2021-11-22 15:25:18 Initial Visit Emma Nguyen [facility] [id number] [facility] 2021-11-22 13:30:00 2021-11-22 13:52:04 Outpatient EMMA ELIAS [facility] [id number] [facility] Results Test Description Test Time Test Comments Results Result Co mments Source [facility] [id number] 17:45:11* Test Item Value Reference Range Interpretation Comme nts VENOUS BASE EXCESS, CORD (test code = 1074344885) mEq/L VENOUS PH, CORD (test code = 1461998170) 7.25-7.45 VENOUS PC02, CORD (test code = 8001712451) See_Comment [Automated messa ge] The system which generated this result transmitted reference range: 27 - 49 mmHg. The reference range was not used to interpret this result as normal/abnormal. VENOUS PO2, CORD (test code = 0569422408) See_Comment [Automated me ssage] The system which generated this result transmitted reference range: 17 - 41 mmHg. The reference range was not used to interpret this result as normal/abnormal. VENOUS BICARBONATE, CORD (test code = 4603502257) See_Comment [Automated messa ge] The system which generated this result transmitted reference range: 12 - 29 mEq/L. The reference range was not used to interpret this result as normal/abnormal. [facility] Lake[facility] CORD [id number] 17:45:05* Test Item Value Reference Range Interpretation Comme nts BASE EXCESS, CORD (test code = 1693212686) mEq/L AC PH, CORD (BEAKER) (test code = 0900428198) 7.18-7.38 PC02, CORD (test code = 2097609772) See_Comment [Automated messa ge] The system which generated this result transmitted reference range: 32 - 66 mmHg. The reference range was not used to interpret this result as normal/abnormal. PO2, CORD (test code = 6922379823) See_Comment [Automated messa ge] The system which generated this result transmitted reference range: 10 - 30 mmHg. The reference range was not used to interpret this result as normal/abnormal. BICARBONATE, CORD (test code = 0385293097) See_Comment [Automated messa ge] The system which generated this result transmitted reference range: 17 - 27 mEq/L. The reference range was not used to interpret this result as normal/abnormal. [facility] LakeGAL[facility] ONLY - SYPHILIS [id number] 16:42:14* Test Item Value Reference Range Interpretation Comme nts Syphilis IgG/IgM (test code = 41397-7) Non-reactive Non-reactive XAVIER (test code = XAVIER) Non-reactive - No serologic evidence of T. pallidum infection. Cannot exclude incubating or early syphilis. Submit a second specimen in 2-4 weeks if syphilis is clinically suspected. Equivocal - Further testing to follow. Reactive - Further testing to follow. Lab Interpretation (test code = 25681-9) Normal [facility] LakeHIV 1/2 AG-AB WITH [id number] 18:48:51* Test Item Value Reference Range Interpretation Comme nts HIV Semi-quantitative (test code = 96662-5) Negative Negative XAVIER (test code = XAVIER) Non-reactive for HIV-1 antigen and HIV-1/HIV-2 antibodies. ?No laboratory evidence of HIV infection. ?Repeat in 2-4 weeks if acute HIV infection is suspected. [facility] LakeHepatitis B Surface [id number] 16:26:12 * Test Item Value Reference Range Interpretation Comme nts HBsAg Semi-Quantitative (frankie t code = 5195-3) Negative Negative [facility] LakeType and Screen - ONCE [id number] 15:24:12 * Test Item Value Reference Range Interpretation Comme nts ABO & RH (test code = 20) O POSITIVE Performed at [facility] Laboratory Services - [facility] Blood [address] [address]Zqot Free: [phone] No. [id number] IAT (test code = 1185) Negative Performed at [facility] Laboratory Services - [facility] Blood [address] [address]Yvvg Free: [phone] No. [id number] [facility] LakeCBC with [id number] 15:19:07* Test Item Value Reference Range Interpretation Comme nts WBC (test code = 6690-2) See_Comment [Automated messa ge] The system which generated this result transmitted reference range: 4.30 - 11.10 10*3/?L. The reference range was not used to interpret this result as normal/abnormal. RBC (test code = 789-8) See_Comment L [Automated messa ge] The system which generated this result transmitted reference range: 3.93 - 5.25 10*6/?L. The reference range was not used to interpret this result as normal/abnormal. HGB (test code = 718-7) 11.4 g/dL 11.6-15.0 L HCT (test code = 4544-3) 34.4 % 35.7-45.2 L MCV (test code = 787-2) 91.0 fL 80.6-95.5 MCH (test code = 785-6) 30.2 pg 25.9-32.8 MCHC (test code = 786-4) 33.1 g/dL 31.6-35.1 RDW-SD (test code = 66555-4) 46.8 fL 39.0-49.9 RDW-CV (test code = 788-0) 14.1 % 12.0-15.5 PLT (test code = 777-3) See_Comment [Automated messa ge] The system which generated this result transmitted reference range: 166 - 358 10*3/?L. The reference range was not used to interpret this result as normal/abnormal. MPV (test code = 01185-4) 11.3 fL 9.5-12.9 NRBC/100 WBC (test code = 4357175372) See_Comment [Automated me ssage] The system which generated this result transmitted reference range: 0.0 - 10.0 /100 WBCs. The reference range was not used to interpret this result as normal/abnormal. NRBC x10^3 (test code = 3809232495) See_Comment [Automated messa ge] The system which generated this result transmitted reference range: 10*3/?L. The reference range was not used to interpret this result as normal/abnormal. GRAN MAT (NEUT) % (test code = 770-8) 67.4 % IMM GRAN % (test code = 4181728471) 0.80 % LYMPH % (test code = 736-9) 20.8 % MONO % (test code = 5905-5) 9.3 % EOS % (test code = 713-8) 1.4 % BASO % (test code = 706-2) 0.3 % GRAN MAT x10^3(ANC) (test code = 0348816804) 7.30 10*3/uL 1.88-7.09 H IMM GRAN x10^3 (test code = 2700299848) 0.09 10*3/uL 0.00-0.06 H LYMPH x10^3 (test code = 731-0) 2.25 10*3/uL 1.32-3.29 MONO x10^3 (test code = 742-7) 1.01 10*3/uL 0.33-0.92 H EOS x10^3 (test code = 711-2) 0.15 10*3/uL 0.03-0.39 BASO x10^3 (test code = 704-7) 0.03 10*3/uL 0.01-0.07 Lab Interpretation (test code = 70754-8) Abnormal [facility] URINALYSIS W SPECIFIC [id number] 17:10:00* Test Item Value Reference Range Interpretation Comme nts POCT U SP GRAV (test code = 3255) * 1.005-1.025 POCT PH U (test code = 3254) * 5-8 POCT U LEUK EST (test code = 3263) * Negative - Negative POCT U NIT (test code = 3262) * Negative - Negati ve POCT U PROT (test code = 3259) trace Negative - Negat gigi POCT U GLU (test code = 3256) negative Negative - Negati ve POCT U KETONE (test code = 3258) * Negative - Neg ative POCT U UROBILI (test code = 3260) * 0.2-1 POCT U BILI (test code = 3261) * Negative - Negat gigi POCT U BLD (test code = 3257) * Negative - Negati ve POCT U COLOR (test code = 3266) POCT U APPEAR (test code = 3267) [facility] UR[facility] W SPECIFIC [id number] 16:03:00* Test Item Value Reference Range Interpretation Comme nts POCT U SP GRAV (test code = 3255) . 1.005-1.025 POCT PH U (test code = 3254) . 5-8 POCT U LEUK EST (test code = 3263) . Negative - Negative POCT U NIT (test code = 3262) . Negative - Negati ve POCT U PROT (test code = 3259) negative Negative - Negat gigi POCT U GLU (test code = 3256) negative Negative - Negati ve POCT U KETONE (test code = 3258) . Negative - Neg ative POCT U UROBILI (test code = 3260) . 0.2-1 POCT U BILI (test code = 3261) . Negative - Negat gigi POCT U BLD (test code = 3257) . Negative - Negati ve POCT U COLOR (test code = 3266) yellow POCT U APPEAR (test code = 3267) clear [facility] WITH [id number] 08:25:20* Test Item Value Reference Range Interpretation Comme nts WBC (test code = 6690-2) See_Comment [Automated messa ge] The system which generated this result transmitted reference range: 4.30 - 11.10 10*3/?L. The reference range was not used to interpret this result as normal/abnormal. RBC (test code = 789-8) See_Comment L [Automated messa ge] The system which generated this result transmitted reference range: 3.93 - 5.25 10*6/?L. The reference range was not used to interpret this result as normal/abnormal. HGB (test code = 718-7) 11.1 g/dL 11.6-15.0 L HCT (test code = 4544-3) 33.0 % 35.7-45.2 L MCV (test code = 787-2) 91.7 fL 80.6-95.5 MCH (test code = 785-6) 30.8 pg 25.9-32.8 MCHC (test code = 786-4) 33.6 g/dL 31.6-35.1 RDW-SD (test code = 58524-7) 45.1 fL 39.0-49.9 RDW-CV (test code = 788-0) 13.6 % 12.0-15.5 PLT (test code = 777-3) See_Comment [Automated messa ge] The system which generated this result transmitted reference range: 166 - 358 10*3/?L. The reference range was not used to interpret this result as normal/abnormal. MPV (test code = 67147-1) 11.5 fL 9.5-12.9 NRBC/100 WBC (test code = 3918463115) See_Comment [Automated [employer] ssage] The system which generated this result transmitted reference range: 0.0 - 10.0 /100 WBCs. The reference range was not used to interpret this result as normal/abnormal. NRBC x10^3 (test code = 1462235743) See_Comment [Automated messa ge] The system which generated this result transmitted reference range: 10*3/?L. The reference range was not used to interpret this result as normal/abnormal. GRAN MAT (NEUT) % (test code = 770-8) 70.0 % IMM GRAN % (test code = 4806680648) 1.30 % LYMPH % (test code = 736-9) 19.7 % MONO % (test code = 5905-5) 7.4 % EOS % (test code = 713-8) 1.3 % BASO % (test code = 706-2) 0.3 % GRAN MAT x10^3(ANC) (test code = 9688231309) 7.33 10*3/uL 1.88-7.09 H IMM GRAN x10^3 (test code = 6869491998) 0.14 10*3/uL 0.00-0.06 H LYMPH x10^3 (test code = 731-0) 2.07 10*3/uL 1.32-3.29 MONO x10^3 (test code = 742-7) 0.78 10*3/uL 0.33-0.92 EOS x10^3 (test code = 711-2) 0.14 10*3/uL 0.03-0.39 BASO x10^3 (test code = 704-7) 0.03 10*3/uL 0.01-0.07 Lab Interpretation (test code = 40209-1) Abnormal [facility] URINALYSIS W SPECIFIC [id number] 15:50:00* Test Item Value Reference Range Interpretation Comme nts POCT U SP GRAV (test code = 3255) . 1.005-1.025 POCT PH U (test code = 3254) . 5-8 POCT U LEUK EST (test code = 3263) . Negative - N egative POCT U NIT (test code = 3262) . Negative - Negati ve POCT U PROT (test code = 3259) Trace Negative - Negat ggii POCT U GLU (test code = 3256) Neg Negative - Negati ve POCT U KETONE (test code = 3258) . Negative - Neg ative POCT U UROBILI (test code = 3260) . 0.2-1 POCT U BILI (test code = 3261) . Negative - Negat gigi POCT U BLD (test code = 3257) .. Negative - Negati ve POCT U COLOR (test code = 3266) . POCT U APPEAR (test code = 3267) .. [facility] URINALYSIS W SPECIFIC [id number] 15:39:00* Test Item Value Reference Range Interpretation Comme nts POCT U SP GRAV (test code = 3255) . 1.005-1.025 POCT PH U (test code = 3254) . 5-8 POCT U LEUK EST (test code = 3263) . Negative - N egative POCT U NIT (test code = 3262) . Negative - Negati ve POCT U PROT (test code = 3259) Trace Negative - Negat gigi POCT U GLU (test code = 3256) Neg Negative - Negati ve POCT U KETONE (test code = 3258) . Negative - Neg ative POCT U UROBILI (test code = 3260) . 0.2-1 POCT U BILI (test code = 3261) . Negative - Negat gigi POCT U BLD (test code = 3257) . Negative - Negati ve POCT U COLOR (test code = 3266) . POCT U APPEAR (test code = 3267) [facility] URINALYSIS W SPECIFIC [id number] 15:39:00* Test Item Value Reference Range Interpretation Comme nts POCT U SP GRAV (test code = 3255) . 1.005-1.025 POCT PH U (test code = 3254) . 5-8 POCT U LEUK EST (test code = 3263) . Negative - N egative POCT U NIT (test code = 3262) . Negative - Negati ve POCT U PROT (test code = 3259) Trace Negative - Negat gigi POCT U GLU (test code = 3256) Neg Negative - Negati ve POCT U KETONE (test code = 3258) . Negative - Neg ative POCT U UROBILI (test code = 3260) . 0.2-1 POCT U BILI (test code = 3261) . Negative - Negat gigi POCT U BLD (test code = 3257) . Negative - Negati ve POCT U COLOR (test code = 3266) . POCT U APPEAR (test code = 3267) [facility] URINALYSIS W SPECIFIC [id number] 15:39:00* Test Item Value Reference Range Interpretation Comme nts POCT U SP GRAV (test code = 3255) . 1.005-1.025 POCT PH U (test code = 3254) . 5-8 POCT U LEUK EST (test code = 3263) . Negative - N egative POCT U NIT (test code = 3262) . Negative - Negati ve POCT U PROT (test code = 3259) Trace Negative - Negat gigi POCT U GLU (test code = 3256) Neg Negative - Negati ve POCT U KETONE (test code = 3258) . Negative - Neg ative POCT U UROBILI (test code = 3260) . 0.2-1 POCT U BILI (test code = 3261) . Negative - Negat gigi POCT U BLD (test code = 3257) . Negative - Negati ve POCT U COLOR (test code = 3266) . POCT U APPEAR (test code = 3267) [facility] URINALYSIS W SPECIFIC [id number] 16:11:00* Test Item Value Reference Range Interpretation Comme nts POCT U SP GRAV (test code = 3255) * 1.005-1.025 POCT PH U (test code = 3254) * 5-8 POCT U LEUK EST (test code = 3263) * Negative - Negative POCT U NIT (test code = 3262) * Negative - Negati ve POCT U PROT (test code = 3259) trace Negative - Negat gigi POCT U GLU (test code = 3256) negative Negative - Negati ve POCT U KETONE (test code = 3258) * Negative - Neg ative POCT U UROBILI (test code = 3260) * 0.2-1 POCT U BILI (test code = 3261) * Negative - Negat gigi POCT U BLD (test code = 3257) * Negative - Negati ve POCT U COLOR (test code = 3266) * POCT U APPEAR (test code = 3267) [facility] URINALYSIS W SPECIFIC [id number] 18:08:00* Test Item Value Reference Range Interpretation Comme nts POCT U SP GRAV (test code = 3255) . 1.005-1.025 POCT PH U (test code = 3254) . 5-8 POCT U LEUK EST (test code = 3263) . Negative - N egative POCT U NIT (test code = 3262) . Negative - Negati ve POCT U PROT (test code = 3259) 1+ Negative - Negat gigi POCT U GLU (test code = 3256) Neg Negative - Negati ve POCT U KETONE (test code = 3258) . Negative - Neg ative POCT U UROBILI (test code = 3260) . 0.2-1 POCT U BILI (test code = 3261) . Negative - Negat gigi POCT U BLD (test code = 3257) . Negative - Negati ve POCT U COLOR (test code = 3266) . POCT U APPEAR (test code = 3267) .. [facility] [id number] 14:14:00* Test Item Value Reference Range Interpretation Comme nts POCT U SP GRAV (test code = 3255) * 1.005-1.025 POCT PH U (test code = 3254) * 5-8 POCT U LEUK EST (test code = 3263) * Negative - Negative POCT U NIT (test code = 3262) * Negative - Negati ve POCT U PROT (test code = 3259) negative Negative - Negat gigi POCT U GLU (test code = 3256) negative Negative - Negati ve POCT U KETONE (test code = 3258) * Negative - Neg ative POCT U UROBILI (test code = 3260) * 0.2-1 POCT U BILI (test code = 3261) * Negative - Negat gigi POCT U BLD (test code = 3257) * Negative - Negati ve POCT U COLOR (test code = 3266) * POCT U APPEAR (test code = 3267) * [facility] Notes Date/Time Note Provider Source [facility]2024-11-06 00:00:00 [facility]2024-09-06 00:00:00 [facility]2024-06-27 00:00:00 [facility]
[2025-05-22] MEDS ORDERED: NA CHLORIDE 0.9% 1,000 ML ONE (18:56)
[2025-05-22] MEDS ORDERED: ONDANSETRON 4 MG/2 ML VIAL ONE (18:56)
[2025-05-22 19:13] LABS: Absolute Lymphocytes (CBC) 3.3 K/uL (0.7-4.9); Hematocrit 36.3 % (36.0-45.0); Hemoglobin 11.7 g/dL (12.0-15.0); MCH 27.3 pg (27.0-35.0); MCHC 32.3 g/dL (32.0-36.0); MCV 84.6 fL (80-100); MPV 9.7 fL (7.6-11.3); Nucleated RBC Absolute Count 0.0 (0-0); Nucleated Red Blood Cells % 0.0 % (0-0); RBC Red Blood Cell Count 4.30 M/uL (3.86-4.86); White Blood Count 13.50 thou/uL (4.3-10.9)
[2025-05-22 19:28] LABS: ALT/SGPT 20.0 U/L (13-56); AST/SGOT 12.0 U/L (15-37); Albumin 3.5 g/dL (3.4-5.0); Albumin/Globulin Ratio 0.8 (1.1-1.8); Alkaline Phosphatase 101.0 U/L (45-117); Anion Gap 11.0 mEq/L (5.0-15.0); BUN Blood Urea Nitrogen 16.0 mg/dL (7-18); Globulin 4.3 g/dL (2.3-3.5); Glucose Level 92.0 mg/dL (74-106); Lipase 29.0 U/L (13-75); Potassium 4.0 mEq/L (3.5-5.1)
--- NOTE | 2025-05-22 19:52 | EDPHYS ---
Physician Documentation [facility] Name: Monserrat Tellez Age: 29 yrs Sex: Female : 1995 Arrival Date: 05/22/2025 Time: 17:40 Bed 12 Private MD: ED Physician Hever Garza HPI: 05/22 18:50 This 29 yrs old Black Female presents to ER via Ambulatory with complaints of sb4 Vomiting/Diarrhea. 18:50 Patient reports nausea, vomiting, and diarrhea since yesterday. She thinks that she may sb4 have food poisoning. States that she is not able to hold anything down. States that her throat hurts from vomiting. Only medical history of stomach ulcers. Denies any blood in her stool or vomit. Denies any fever or chills or other upper respiratory symptoms. Denies any sick contacts. 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 - Infectious Disease History:: Denies. - Social history:: Smoking status: Reported history of juuling and/or vaping. ROS: 18:50 Constitutional: Negative for fever, chills, and weight loss, sb4 18:50 Abdomen/GI: Positive for nausea, vomiting, and diarrhea, 18:50 All other systems are negative, Exam: 18:50 Constitutional: This is a well developed, well nourished patient who is awake, alert, sb4 and in no acute distress. Head/Face: Normocephalic, atraumatic. Eyes: Extra-ocular motions intact. Periorbital areas with no swelling, redness, or edema. Cardiovascular: Regular rate and rhythm with a normal S1 and S2. Respiratory: No increased work of breathing, no retractions or nasal flaring. Abdomen/GI: Soft, non-tender, no distension. Skin: Warm, dry with normal turgor. Normal color with no rashes, no lesions, and no evidence of cellulitis. 18:50 ENT: Mouth: Oral mucosa: dry, Vital Signs: 17:53 BP 130 / 85; Pulse 87; Resp 16; Temp 98.4(O); Pulse Ox 99% ; Weight 78.47 kg; Height 5 db ft. 0 in. ; Pain 7/10; 17:53 Body Mass Index 33.79 (78.47 kg, 152.4 cm) db 17:53 Pain Scale: Adult db MDM: 17:51 Medical Screening Exam initiated sb4 18:51 Differential diagnosis: gastritis, pancreatitis, viral gastroenteritis. sb4 19:53 Data reviewed: vital signs, nurses notes, lab test result(s), and as a result, I will sb4 discharge patient. Test considered but Not performed: CT: abdomen/pelvis, not indicated - viral gastroenteritis, no abd tenderness. Counseling: I had a detailed discussion with the patient and/or guardian regarding the historical points, exam findings, and any diagnostic results supporting the discharge/admit diagnosis, lab results, the need for outpatient follow up, for definitive care, to return to the emergency department if symptoms worsen or persist or if there are any questions or concerns that arise at home. 05/22 18:13 Order name: CBC with Diff; Complete Time: 19:32 sb4 05/22 18:13 Order name: CMP; Complete Time: 19:32 sb4 05/22 18:13 Order name: Lipase; Complete Time: 19:32 sb4 05/22 18:13 Order name: IV Saline Lock; Complete Time: 19:03 sb4 05/22 18:13 Order name: Labs collected and sent; Complete Time: 19:03 sb4 05/22 19:32 Order name: PO challenge; Complete Time: 19:44 sb4 Administered Medications: 19:08 Drug: NS 0.9% IV 1000 ml IV at 1000 ml once; to be given as a bolus over 60 minutes rg5 Route: IV; Rate: 1000 ml; Site: right forearm; 20:10 Follow up: IV Status: Completed infusion; IV Intake: 1000ml rg5 19:08 Drug: Ondansetron IVP 4 mg IVP once; over 2 minutes Route: IVP; Site: right forearm; rg5 19:44 Follow up: Response: No adverse reaction rg5 Disposition Summary: 05/22/25 19:52 Discharge Ordered Notes: Location: Home sb4 Problem: new sb4 Symptoms: have improved sb4 Condition: Stable sb4 Diagnosis - Viral gastroenteritis sb4 Followup: sb4 - With: Emergency Department - When: As needed - Reason: Trouble breathing, Worsening of condition Discharge Instructions: - Discharge Summary Sheet sb4 - Viral Gastroenteritis, Adult, [id number] sb4 Forms: - Work release form sb4 - Patient Portal Instructions sb4 - Leadership Thank You Letter sb4 Prescriptions: - ondansetron 4 mg Oral Tablet,disintegrating - take 1 tablet ORAL route every 6 hours as needed for nausea and vomiting; 10 sb4 tablet; Refills: 0, Product Selection Permitted - Imodium A-D 2 mg Oral tablet - take 1 tablet ORAL route every 6 hours as needed for loose stool; 10 tablet; sb4 Refills: 0, Product Selection Permitted Signatures: Dispatcher [employer] Marybeth Valentine RN RN Lucila Joy PA-C PALizbet sb4 Jimmy Clay, RN RN rg5 Corrections: (The following items were deleted from the chart) 17:55 17:54 PMHx: None; shasha pulliam
--- NOTE | 2025-05-22 19:52 | ER ---
Nurse's Notes [facility] Name: Monserrat Tellez Age: 29 yrs Sex: Female : 1995 Arrival Date: 05/22/2025 Time: 17:40 Bed 12 Private MD: Diagnosis: Viral gastroenteritis Presentation: 05/22 17:53 Chief complaint: Patient states: N/V/ DIARRHEA WITH ABD PAIN SINCE YESTERDAY. STATES db ATE SHRIMP SUNDAY AND SUNDAY STARTED WITH VOMITING AND DIARRHEA. UNABLE TO KEEP ANYTHING DOWN. Coronavirus screen: Client denies travel out of the [place] in the last 14 days. At this time, the client does not indicate any symptoms associated with coronavirus-19. Ebola Screen: Patient negative for fever greater than or equal to 101.5 degrees Fahrenheit, and additional compatible Ebola Virus Disease symptoms Patient denies exposure to infectious person. Patient denies travel to an Ebola-affected area in the 21 days before illness onset. No symptoms or risks identified at this time. Initial Sepsis Screen: Does the patient meet any 2 criteria? No. Patient's initial sepsis screen is negative. Does the patient have a suspected source of infection? No. Patient's initial sepsis screen is negative. Risk Assessment: Do you want to hurt yourself or someone else? Patient reports no desire to harm self or others. Onset of symptoms was May 22, 2025. 17:53 Method Of Arrival: Ambulatory db 17:53 Acuity: CLAUDIA 3 db Triage Assessment: 17:54 General: Appears in no apparent distress. uncomfortable, Behavior is calm, cooperative. db Pain: Complains of pain in abdomen. Neuro: Level of Consciousness is awake, alert, obeys commands, Oriented to person, place, time, situation. Respiratory: Airway is patent Respiratory effort is even, unlabored, Respiratory pattern is regular, symmetrical. GI: Reports diarrhea, intolerance of food, nausea, vomiting. 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 - Infectious Disease History:: Denies. - Social history:: Smoking status: Reported history of juuling and/or vaping. Screenin:09 [facility] ED Fall Risk Assessment (Adult) History of falling in the last 3 months, rg5 including since admission No falls in past 3 months (0 pts) Confusion or Disorientation No (0 pts) Intoxicated or Sedated No (0 pts) Impaired Gait No (0 pts) Mobility Assist Device Used No (0 pt) Altered Elimination Score/Fall Risk Level 0 - 2 = Low Risk Oriented to surroundings. Abuse screen: Denies threats or abuse. Nutritional screening: No deficits noted. Tuberculosis screening: No symptoms or risk factors identified. Assessment: 19:09 General: Appears in no apparent distress. comfortable, Behavior is calm, cooperative, rg5 appropriate for age. Neuro: Level of Consciousness is awake, alert, obeys commands, Oriented to person, place, time, situation. Cardiovascular: Denies chest pain, Patient's skin is warm and dry. Respiratory: Airway is patent Respiratory effort is even, unlabored, Respiratory pattern is regular. GI: Reports diarrhea, nausea. GI: Abdomen is round non-distended. : No signs and/or symptoms were reported regarding the genitourinary system. Derm: Skin is intact, Skin is normal. Musculoskeletal: Circulation, motion, and sensation intact. Range of motion: intact in all extremities. Vital Signs: 17:53 BP 130 / 85; Pulse 87; Resp 16; Temp 98.4(O); Pulse Ox 99% ; Weight 78.47 kg; Height 5 db ft. 0 in. ; Pain 7/10; 17:53 Body Mass Index 33.79 (78.47 kg, 152.4 cm) db 17:53 Pain Scale: Adult db ED Course: 17:44 Patient arrived in ED. al6 17:46 Lucila Holm PA-C is PHCP. sb4 17:46 Hever Garza MD is Attending Physician. sb4 17:54 Triage completed. db 17:54 Arm band placed on right wrist. db 18:44 Jimmy Clay, MUKUND is Primary Nurse. rg5 19:09 Patient has correct armband on for positive identification. Bed in low position. Call rg5 light in reach. Side rails up X 1. Door closed. Noise minimized. Warm blanket given. 19:09 No provider procedures requiring assistance completed. Inserted saline lock: 20 gauge rg5 in right forearm, using aseptic technique. Blood collected. Flushed with 10 mL NS. 20:00 IV discontinued, bleeding controlled, No redness/swelling at site. Pressure dressing rg5 applied. Administered Medications: 19:08 Drug: NS 0.9% IV 1000 ml IV at 1000 ml once; to be given as a bolus over 60 minutes rg5 Route: IV; Rate: 1000 ml; Site: right forearm; 20:10 Follow up: IV Status: Completed infusion; IV Intake: 1000ml rg5 19:08 Drug: Ondansetron IVP 4 mg IVP once; over 2 minutes Route: IVP; Site: right forearm; rg5 19:44 Follow up: Response: No adverse reaction rg5 Medication: 19:09 VIS not applicable for this client. rg5 Intake: 20:10 IV: 1000ml; Total: 1000ml. rg5 Outcome: 19:52 Discharge ordered by MD. sb4 20:00 Discharged to home ambulatory, rg5 20:00 Condition: stable 20:00 Discharge instructions given to patient, Instructed on discharge instructions, Demonstrated understanding of instructions, Prescriptions given X 1, 20:14 Patient left the ED. rg5 Signatures: Marybeth Cheney, RN RN Lucila Joy PA-C PARenettaC sb4 Jimmy Clay RN RN rg5 Stephanie Balderas6 Corrections: (The following items were deleted from the chart) 17:55 17:54 PMHx: None; shasha pulliam
[2025-05-22 20:19] VITALS: BP 130/85; TEMP 98.4; O2SAT 99
== END 2025-05-22 20:14 | disposition home or self-care (01) ==
LOC: ER 17:40
DX: A08.4 Viral intestinal infection, unspecified (principal)
CPT/HCPCS: 96361; 85025; 36415; 83690; 80053; 96374; 99284; J2405; J7030